=== PATIENT | male | born 1940 | race Caucasian/White ===

== ENCOUNTER → 2016-08-21 | Outpatient (CLI) | payer MEDICARE, OTHER ==
[~2016-08-21] VITALS: Ht 172.7 cm; Wt 86.2 kg
[~2016-08-21] MED LIST: ATEN-60 PO; AZIL1TAB PO; DIGO0.124 PO; NAPR-759 PO; NITR0.4S31 SL; WARF3TAB7 PO; pravastatin PO
[2016-08-21 12:36] LABS: Basophils # (auto) 0.1 uL; Basophils % (auto) 0.7 % (0.0-2.0); CONDITION Y; Eosinophils # (auto) 0.1 uL; Eosinophils % (auto) 0.9 % (0.0-7.0); Hematocrit 52.8 % (41.0-53.0); Lymphocytes # (auto) 2.1 uL; Lymphocytes % (auto) 29.8 % (10.0-50.0); Mean Corpuscular Hemoglobin 31.9 pg (28.0-32.0); Mean Corpuscular Hgb Conc. 34.2 g/dL (32.0-36.0); Mean Corpuscular Volume 93.4 fL (80.0-100.0); Mean Platelet Volume 9.8 fL (7.4-10.4); Monocytes # (auto) 0.6 uL; Monocytes % (auto) 8.9 % (0.0-12.0); Neutrophils # (auto) 4.1 uL; Neutrophils % (auto) 59.7 % (37.0-80.0); Platelet Count (auto) 195 10^3/uL (140-450); Red Cell Distribution Width 13.3 % (11.6-16.0); White Blood Cell 6.9 10^3/uL (4.4-10.8)
[2016-08-21 12:57] LABS: Potassium 4.1 mmol/L (3.5-5.1)
== END | disposition home or self-care (01) ==
LOC: Rad HDHVI 08:23
PROVIDERS: ATTEND Internal Medicine Cardiovascular Disease
DX: E78.00 Pure hypercholesterolemia, unspecified (principal); I10 Essential (primary) hypertension; D64.9 Anemia, unspecified
CPT/HCPCS: 36415; 78452; 80048; 80061; 85025; 93017; 96374

== ENCOUNTER → 2016-09-26 | Outpatient (CLI) | payer MEDICARE, OTHER | END | disposition home or self-care (01) | LOC: Rad HDHVI 12:54 | PROVIDERS: ATTEND Internal Medicine Cardiovascular Disease | DX: I10 Essential (primary) hypertension (principal); I48.0 Paroxysmal atrial fibrillation | CPT/HCPCS: 93880 ==

== ENCOUNTER → 2016-12-26 | Outpatient (CLI) | payer MEDICARE, OTHER ==
[~2016-12-26] MED LIST changes: +IOHEXOL 350 MG/ML 100ML IJ ONE
[2016-12-26 10:15] VITALS: BP 189/119
[2016-12-26 11:05] VITALS: BP 147/87
== END | disposition home or self-care (01) ==
LOC: Rad HDHVI 09:33
PROVIDERS: ATTEND Internal Medicine Cardiovascular Disease
DX: I65.23 Occlusion and stenosis of bilateral carotid arteries (principal); I65.02 Occlusion and stenosis of left vertebral artery; I63.9 Cerebral infarction, unspecified; I10 Essential (primary) hypertension; H33.20 Serous retinal detachment, unspecified eye; I48.91 Unspecified atrial fibrillation
CPT/HCPCS: 70498; 82565; 96374; G0463; Q9967; 70496

== ENCOUNTER → 2017-01-22 | Outpatient (CLI) | payer MEDICARE, OTHER ==
[~2017-01-22] MED LIST changes: -IOHEXOL 350 MG/ML 100ML IJ ONE
[2017-01-22 10:15] VITALS: BP_SYST 140; BP_SYST 144; BP_DIAS 91; BP_DIAS 94
[2017-01-22 11:30] VITALS: BP 144/94
== END | disposition home or self-care (01) ==
LOC: CHF HDHVI 09:42
PROVIDERS: ATTEND Internal Medicine Cardiovascular Disease
DX: I25.738 Atherosclerosis of nonautologous biological coronary artery bypass graft(s) with other forms of angina pectoris (principal); I11.0 Hypertensive heart disease with heart failure; I50.23 Acute on chronic systolic (congestive) heart failure; I48.91 Unspecified atrial fibrillation; I63.9 Cerebral infarction, unspecified
CPT/HCPCS: 93005; G0166; G0463

== ENCOUNTER → 2017-01-23 | Outpatient (CLI) | payer MEDICARE, OTHER ==
[2017-01-23 09:55] VITALS: BP_SYST 143; BP_SYST 145; BP_DIAS 90; BP_DIAS 91
== END | disposition home or self-care (01) ==
LOC: CHF HDHVI 09:49
PROVIDERS: ATTEND Internal Medicine Cardiovascular Disease
DX: J44.9 Chronic obstructive pulmonary disease, unspecified (principal); I50.23 Acute on chronic systolic (congestive) heart failure; I25.738 Atherosclerosis of nonautologous biological coronary artery bypass graft(s) with other forms of angina pectoris; I63.9 Cerebral infarction, unspecified
CPT/HCPCS: G0166

== ENCOUNTER → 2017-01-24 | Outpatient (CLI) | payer MEDICARE, OTHER ==
[2017-01-24 09:58] VITALS: BP_SYST 136; BP_SYST 143; BP_DIAS 91
== END | disposition home or self-care (01) ==
LOC: CHF HDHVI 09:53
PROVIDERS: ATTEND Internal Medicine Cardiovascular Disease
DX: I25.738 Atherosclerosis of nonautologous biological coronary artery bypass graft(s) with other forms of angina pectoris (principal); I50.23 Acute on chronic systolic (congestive) heart failure; J44.9 Chronic obstructive pulmonary disease, unspecified; I63.9 Cerebral infarction, unspecified
CPT/HCPCS: G0166

== ENCOUNTER → 2017-01-29 | Outpatient (CLI) | payer MEDICARE, OTHER ==
[2017-01-29 10:02] VITALS: BP_SYST 142; BP_SYST 143; BP_DIAS 87; BP_DIAS 89
== END | disposition home or self-care (01) ==
LOC: CHF HDHVI 09:48
PROVIDERS: ATTEND Internal Medicine Cardiovascular Disease
DX: I25.738 Atherosclerosis of nonautologous biological coronary artery bypass graft(s) with other forms of angina pectoris (principal); I50.23 Acute on chronic systolic (congestive) heart failure; J44.9 Chronic obstructive pulmonary disease, unspecified; I63.8 Other cerebral infarction
CPT/HCPCS: G0166

== ENCOUNTER → 2017-01-30 | Outpatient (CLI) | payer MEDICARE, OTHER ==
[2017-01-30 09:17] VITALS: BP_SYST 143; BP_SYST 144; BP_DIAS 82; BP_DIAS 99
== END | disposition home or self-care (01) ==
LOC: CHF HDHVI 08:56
PROVIDERS: ATTEND Internal Medicine Cardiovascular Disease
DX: I25.738 Atherosclerosis of nonautologous biological coronary artery bypass graft(s) with other forms of angina pectoris (principal); I50.23 Acute on chronic systolic (congestive) heart failure; J44.9 Chronic obstructive pulmonary disease, unspecified; I63.9 Cerebral infarction, unspecified
CPT/HCPCS: G0166

== ENCOUNTER → 2017-02-05 | Outpatient (CLI) | payer MEDICARE, OTHER ==
[2017-02-05 10:28] VITALS: BP_SYST 135; BP_SYST 137; BP_DIAS 87; BP_DIAS 92
== END | disposition home or self-care (01) ==
LOC: CHF HDHVI 09:48
PROVIDERS: ATTEND Internal Medicine Cardiovascular Disease
DX: I25.738 Atherosclerosis of nonautologous biological coronary artery bypass graft(s) with other forms of angina pectoris (principal); I50.23 Acute on chronic systolic (congestive) heart failure; J44.9 Chronic obstructive pulmonary disease, unspecified; I63.9 Cerebral infarction, unspecified
CPT/HCPCS: G0166

== ENCOUNTER → 2017-02-06 | Outpatient (CLI) | payer MEDICARE, OTHER ==
[2017-02-06 10:21] VITALS: BP_SYST 135; BP_SYST 143; BP_DIAS 85; BP_DIAS 87
== END | disposition home or self-care (01) ==
LOC: CHF HDHVI 09:56
PROVIDERS: ATTEND Internal Medicine Cardiovascular Disease
DX: I25.738 Atherosclerosis of nonautologous biological coronary artery bypass graft(s) with other forms of angina pectoris (principal); I50.23 Acute on chronic systolic (congestive) heart failure; J44.9 Chronic obstructive pulmonary disease, unspecified; I63.9 Cerebral infarction, unspecified
CPT/HCPCS: G0166

== ENCOUNTER → 2017-02-07 | Outpatient (CLI) | payer MEDICARE, OTHER ==
[2017-02-07 08:58] VITALS: BP_SYST 126; BP_SYST 145; BP_DIAS 78; BP_DIAS 86
== END | disposition home or self-care (01) ==
LOC: CHF HDHVI 08:52
PROVIDERS: ATTEND Internal Medicine Cardiovascular Disease
DX: I25.738 Atherosclerosis of nonautologous biological coronary artery bypass graft(s) with other forms of angina pectoris (principal); I50.23 Acute on chronic systolic (congestive) heart failure; J44.9 Chronic obstructive pulmonary disease, unspecified; I63.9 Cerebral infarction, unspecified
CPT/HCPCS: G0166

== ENCOUNTER → 2017-02-08 | Outpatient (CLI) | payer MEDICARE, OTHER ==
[2017-02-08 10:20] VITALS: BP_SYST 129; BP_SYST 138; BP_DIAS 81; BP_DIAS 86
== END | disposition home or self-care (01) ==
LOC: CHF HDHVI 10:01
PROVIDERS: ATTEND Internal Medicine Cardiovascular Disease
DX: I25.738 Atherosclerosis of nonautologous biological coronary artery bypass graft(s) with other forms of angina pectoris (principal); I50.23 Acute on chronic systolic (congestive) heart failure; J44.9 Chronic obstructive pulmonary disease, unspecified; I63.9 Cerebral infarction, unspecified
CPT/HCPCS: G0166

== ENCOUNTER → 2017-02-09 | Outpatient (CLI) | payer MEDICARE, OTHER ==
[2017-02-09 09:00] VITALS: BP_SYST 130; BP_SYST 139; BP_DIAS 85; BP_DIAS 92
== END | disposition home or self-care (01) ==
LOC: CHF HDHVI 08:53
PROVIDERS: ATTEND Internal Medicine Cardiovascular Disease
DX: I25.738 Atherosclerosis of nonautologous biological coronary artery bypass graft(s) with other forms of angina pectoris (principal); I50.23 Acute on chronic systolic (congestive) heart failure; J44.9 Chronic obstructive pulmonary disease, unspecified; I63.9 Cerebral infarction, unspecified
CPT/HCPCS: G0166

== ENCOUNTER → 2017-02-13 | Outpatient (CLI) | payer MEDICARE, OTHER ==
[2017-02-13 10:17] VITALS: BP_SYST 135; BP_SYST 143; BP_DIAS 80; BP_DIAS 95
== END | disposition home or self-care (01) ==
LOC: CHF HDHVI 09:55
PROVIDERS: ATTEND Internal Medicine Cardiovascular Disease
DX: I25.738 Atherosclerosis of nonautologous biological coronary artery bypass graft(s) with other forms of angina pectoris (principal); I50.23 Acute on chronic systolic (congestive) heart failure; J44.9 Chronic obstructive pulmonary disease, unspecified; I63.9 Cerebral infarction, unspecified
CPT/HCPCS: G0166

== ENCOUNTER → 2017-02-14 | Outpatient (CLI) | payer MEDICARE, OTHER ==
[2017-02-14 08:59] VITALS: BP_SYST 143; BP_SYST 145; BP_DIAS 89; BP_DIAS 90
== END | disposition home or self-care (01) ==
LOC: CHF HDHVI 08:53
PROVIDERS: ATTEND Internal Medicine Cardiovascular Disease
DX: I25.738 Atherosclerosis of nonautologous biological coronary artery bypass graft(s) with other forms of angina pectoris (principal); I50.23 Acute on chronic systolic (congestive) heart failure; J44.9 Chronic obstructive pulmonary disease, unspecified; I63.9 Cerebral infarction, unspecified
CPT/HCPCS: G0166

== ENCOUNTER → 2017-02-16 | Outpatient (CLI) | payer MEDICARE, OTHER ==
[2017-02-16 09:02] VITALS: BP_SYST 129; BP_SYST 148; BP_DIAS 87; BP_DIAS 97
== END | disposition home or self-care (01) ==
LOC: CHF HDHVI 08:55
PROVIDERS: ATTEND Internal Medicine Cardiovascular Disease
DX: I25.738 Atherosclerosis of nonautologous biological coronary artery bypass graft(s) with other forms of angina pectoris (principal); I50.23 Acute on chronic systolic (congestive) heart failure; J44.9 Chronic obstructive pulmonary disease, unspecified; I63.9 Cerebral infarction, unspecified
CPT/HCPCS: G0166

== ENCOUNTER → 2017-02-19 | Outpatient (CLI) | payer MEDICARE, OTHER ==
[2017-02-19 09:58] VITALS: BP_SYST 127; BP_SYST 142; BP_DIAS 91; BP_DIAS 92
== END | disposition home or self-care (01) ==
LOC: CHF HDHVI 09:43
PROVIDERS: ATTEND Internal Medicine Cardiovascular Disease
DX: I25.738 Atherosclerosis of nonautologous biological coronary artery bypass graft(s) with other forms of angina pectoris (principal); I50.23 Acute on chronic systolic (congestive) heart failure; J44.9 Chronic obstructive pulmonary disease, unspecified; I63.9 Cerebral infarction, unspecified
CPT/HCPCS: G0166

== ENCOUNTER → 2017-02-20 | Outpatient (CLI) | payer MEDICARE, OTHER ==
[2017-02-20 10:24] VITALS: BP_SYST 136; BP_SYST 142; BP_DIAS 92; BP_DIAS 98
== END | disposition home or self-care (01) ==
LOC: CHF HDHVI 10:07
PROVIDERS: ATTEND Internal Medicine Cardiovascular Disease
DX: I25.738 Atherosclerosis of nonautologous biological coronary artery bypass graft(s) with other forms of angina pectoris (principal); I50.23 Acute on chronic systolic (congestive) heart failure; J44.9 Chronic obstructive pulmonary disease, unspecified; I63.9 Cerebral infarction, unspecified
CPT/HCPCS: G0166

== ENCOUNTER → 2017-02-21 | Outpatient (CLI) | payer MEDICARE, OTHER ==
[2017-02-21 09:04] VITALS: BP_SYST 140; BP_SYST 146; BP_DIAS 93; BP_DIAS 94
== END | disposition home or self-care (01) ==
LOC: CHF HDHVI 09:26
PROVIDERS: ATTEND Internal Medicine Cardiovascular Disease
DX: I25.738 Atherosclerosis of nonautologous biological coronary artery bypass graft(s) with other forms of angina pectoris (principal); I50.23 Acute on chronic systolic (congestive) heart failure; J44.9 Chronic obstructive pulmonary disease, unspecified; I63.9 Cerebral infarction, unspecified
CPT/HCPCS: G0166

== ENCOUNTER → 2017-02-22 | Outpatient (CLI) | payer MEDICARE, OTHER ==
[2017-02-22 08:59] VITALS: BP_SYST 141; BP_SYST 144; BP_DIAS 94; BP_DIAS 95
== END | disposition home or self-care (01) ==
LOC: CHF HDHVI 08:45
PROVIDERS: ATTEND Internal Medicine Cardiovascular Disease
DX: I25.738 Atherosclerosis of nonautologous biological coronary artery bypass graft(s) with other forms of angina pectoris (principal); I50.23 Acute on chronic systolic (congestive) heart failure; J44.9 Chronic obstructive pulmonary disease, unspecified; I63.9 Cerebral infarction, unspecified
CPT/HCPCS: G0166

== ENCOUNTER → 2017-02-23 | Outpatient (CLI) | payer MEDICARE, OTHER ==
[2017-02-23 08:05] VITALS: BP_SYST 139; BP_SYST 142; BP_DIAS 82; BP_DIAS 88
== END | disposition home or self-care (01) ==
LOC: CHF HDHVI 08:01
PROVIDERS: ATTEND Internal Medicine Cardiovascular Disease
DX: I25.738 Atherosclerosis of nonautologous biological coronary artery bypass graft(s) with other forms of angina pectoris (principal); I50.23 Acute on chronic systolic (congestive) heart failure; J44.9 Chronic obstructive pulmonary disease, unspecified; I63.9 Cerebral infarction, unspecified
CPT/HCPCS: G0166

== ENCOUNTER → 2017-03-01 | Outpatient (CLI) | payer MEDICARE, OTHER ==
[2017-03-01 10:22] VITALS: BP_SYST 126; BP_SYST 137; BP_DIAS 82; BP_DIAS 91
== END | disposition home or self-care (01) ==
LOC: CHF HDHVI 10:04
PROVIDERS: ATTEND Internal Medicine Cardiovascular Disease
DX: I25.738 Atherosclerosis of nonautologous biological coronary artery bypass graft(s) with other forms of angina pectoris (principal); I50.23 Acute on chronic systolic (congestive) heart failure; J44.9 Chronic obstructive pulmonary disease, unspecified; I63.9 Cerebral infarction, unspecified
CPT/HCPCS: G0166

== ENCOUNTER → 2017-03-02 | Outpatient (CLI) | payer MEDICARE, OTHER ==
[2017-03-02 08:51] VITALS: BP_SYST 137; BP_SYST 143; BP_DIAS 92; BP_DIAS 93
== END | disposition home or self-care (01) ==
LOC: CHF HDHVI 08:46
PROVIDERS: ATTEND Internal Medicine Cardiovascular Disease
DX: I25.738 Atherosclerosis of nonautologous biological coronary artery bypass graft(s) with other forms of angina pectoris (principal); I50.23 Acute on chronic systolic (congestive) heart failure; J44.9 Chronic obstructive pulmonary disease, unspecified; I63.9 Cerebral infarction, unspecified
CPT/HCPCS: G0166

== ENCOUNTER → 2017-03-06 | Outpatient (CLI) | payer MEDICARE, OTHER ==
[2017-03-06 10:16] VITALS: BP_SYST 141; BP_SYST 147; BP_DIAS 89; BP_DIAS 90
== END | disposition home or self-care (01) ==
LOC: CHF HDHVI 09:53
PROVIDERS: ATTEND Internal Medicine Cardiovascular Disease
DX: I25.738 Atherosclerosis of nonautologous biological coronary artery bypass graft(s) with other forms of angina pectoris (principal); I50.23 Acute on chronic systolic (congestive) heart failure; J44.9 Chronic obstructive pulmonary disease, unspecified; I63.9 Cerebral infarction, unspecified
CPT/HCPCS: G0166

== ENCOUNTER → 2017-03-07 | Outpatient (CLI) | payer MEDICARE, OTHER ==
[2017-03-07 08:53] VITALS: BP_SYST 125; BP_SYST 136; BP_DIAS 82; BP_DIAS 90
== END | disposition home or self-care (01) ==
LOC: CHF HDHVI 08:46
PROVIDERS: ATTEND Internal Medicine Cardiovascular Disease
DX: I25.738 Atherosclerosis of nonautologous biological coronary artery bypass graft(s) with other forms of angina pectoris (principal); I50.23 Acute on chronic systolic (congestive) heart failure; J44.9 Chronic obstructive pulmonary disease, unspecified; I63.9 Cerebral infarction, unspecified
CPT/HCPCS: G0166

== ENCOUNTER → 2017-03-08 | Outpatient (CLI) | payer MEDICARE, OTHER ==
[2017-03-08 10:16] VITALS: BP_SYST 141; BP_SYST 142; BP_DIAS 94; BP_DIAS 96
== END | disposition home or self-care (01) ==
LOC: CHF HDHVI 10:09
PROVIDERS: ATTEND Internal Medicine Cardiovascular Disease
DX: I25.738 Atherosclerosis of nonautologous biological coronary artery bypass graft(s) with other forms of angina pectoris (principal); I50.23 Acute on chronic systolic (congestive) heart failure; J44.9 Chronic obstructive pulmonary disease, unspecified; I63.9 Cerebral infarction, unspecified
CPT/HCPCS: G0166

== ENCOUNTER → 2017-03-09 | Outpatient (CLI) | payer MEDICARE, OTHER ==
[2017-03-09 08:50] VITALS: BP_SYST 140; BP_DIAS 80; BP_DIAS 83
== END | disposition home or self-care (01) ==
LOC: CHF HDHVI 08:37
PROVIDERS: ATTEND Internal Medicine Cardiovascular Disease
DX: I25.738 Atherosclerosis of nonautologous biological coronary artery bypass graft(s) with other forms of angina pectoris (principal); I50.23 Acute on chronic systolic (congestive) heart failure; J44.9 Chronic obstructive pulmonary disease, unspecified; I63.9 Cerebral infarction, unspecified
CPT/HCPCS: G0166

== ENCOUNTER → 2017-03-12 | Outpatient (CLI) | payer MEDICARE, OTHER ==
[2017-03-12 08:55] VITALS: BP_SYST 140; BP_SYST 141; BP_DIAS 84; BP_DIAS 86
== END | disposition home or self-care (01) ==
LOC: CHF HDHVI 08:51
PROVIDERS: ATTEND Internal Medicine Cardiovascular Disease
DX: I25.738 Atherosclerosis of nonautologous biological coronary artery bypass graft(s) with other forms of angina pectoris (principal); I63.9 Cerebral infarction, unspecified; J44.9 Chronic obstructive pulmonary disease, unspecified
CPT/HCPCS: G0166

== ENCOUNTER → 2017-03-14 | Outpatient (CLI) | payer MEDICARE, OTHER ==
[2017-03-14 09:00] VITALS: BP_SYST 140; BP_SYST 142; BP_DIAS 83; BP_DIAS 93
== END | disposition home or self-care (01) ==
LOC: CHF HDHVI 08:49
PROVIDERS: ATTEND Internal Medicine Cardiovascular Disease
DX: I25.738 Atherosclerosis of nonautologous biological coronary artery bypass graft(s) with other forms of angina pectoris (principal); I50.23 Acute on chronic systolic (congestive) heart failure; J44.9 Chronic obstructive pulmonary disease, unspecified; I63.9 Cerebral infarction, unspecified
CPT/HCPCS: G0166

== ENCOUNTER → 2017-03-15 | Outpatient (CLI) | payer MEDICARE, OTHER ==
[2017-03-15 12:13] VITALS: BP_SYST 125; BP_SYST 130; BP_DIAS 92; BP_DIAS 96
== END | disposition home or self-care (01) ==
LOC: CHF HDHVI 12:05
PROVIDERS: ATTEND Internal Medicine Cardiovascular Disease
DX: I25.738 Atherosclerosis of nonautologous biological coronary artery bypass graft(s) with other forms of angina pectoris (principal); I50.23 Acute on chronic systolic (congestive) heart failure; J44.9 Chronic obstructive pulmonary disease, unspecified; I63.9 Cerebral infarction, unspecified
CPT/HCPCS: G0166

== ENCOUNTER → 2017-03-16 | Outpatient (CLI) | payer MEDICARE, OTHER ==
[2017-03-16 09:05] VITALS: BP_SYST 130; BP_SYST 131; BP_DIAS 86; BP_DIAS 88
== END | disposition home or self-care (01) ==
LOC: CHF HDHVI 08:52
PROVIDERS: ATTEND Internal Medicine Cardiovascular Disease
DX: I25.738 Atherosclerosis of nonautologous biological coronary artery bypass graft(s) with other forms of angina pectoris (principal); I50.23 Acute on chronic systolic (congestive) heart failure; J44.9 Chronic obstructive pulmonary disease, unspecified; I63.9 Cerebral infarction, unspecified
CPT/HCPCS: G0166

== ENCOUNTER → 2017-03-26 | Outpatient (CLI) | payer MEDICARE, OTHER ==
[2017-03-26 08:59] VITALS: BP_SYST 135; BP_SYST 138; BP_DIAS 83; BP_DIAS 92
== END | disposition home or self-care (01) ==
LOC: CHF HDHVI 08:52
PROVIDERS: ATTEND Internal Medicine Cardiovascular Disease
DX: I25.738 Atherosclerosis of nonautologous biological coronary artery bypass graft(s) with other forms of angina pectoris (principal); I50.23 Acute on chronic systolic (congestive) heart failure; J44.9 Chronic obstructive pulmonary disease, unspecified; I63.9 Cerebral infarction, unspecified
CPT/HCPCS: G0166

== ENCOUNTER → 2017-03-27 | Outpatient (CLI) | payer MEDICARE, OTHER ==
[2017-03-27 08:59] VITALS: BP_SYST 133; BP_SYST 139; BP_DIAS 84; BP_DIAS 95
== END | disposition home or self-care (01) ==
LOC: CHF HDHVI 08:45
PROVIDERS: ATTEND Internal Medicine Cardiovascular Disease
DX: I25.738 Atherosclerosis of nonautologous biological coronary artery bypass graft(s) with other forms of angina pectoris (principal); I50.23 Acute on chronic systolic (congestive) heart failure; J44.9 Chronic obstructive pulmonary disease, unspecified; I63.9 Cerebral infarction, unspecified
CPT/HCPCS: G0166

== ENCOUNTER → 2017-03-28 | Outpatient (CLI) | payer MEDICARE, OTHER ==
[2017-03-28 09:04] VITALS: BP_SYST 136; BP_SYST 140; BP_DIAS 89
== END | disposition home or self-care (01) ==
LOC: CHF HDHVI 08:59
PROVIDERS: ATTEND Internal Medicine Cardiovascular Disease
DX: I25.738 Atherosclerosis of nonautologous biological coronary artery bypass graft(s) with other forms of angina pectoris (principal); I50.23 Acute on chronic systolic (congestive) heart failure; J44.9 Chronic obstructive pulmonary disease, unspecified; I63.9 Cerebral infarction, unspecified
CPT/HCPCS: G0166

== ENCOUNTER → 2017-03-29 | Outpatient (CLI) | payer MEDICARE, OTHER ==
[2017-03-29 08:55] VITALS: BP_SYST 140; BP_DIAS 89; BP_DIAS 91
== END | disposition home or self-care (01) ==
LOC: CHF HDHVI 08:46
PROVIDERS: ATTEND Internal Medicine Cardiovascular Disease
DX: I25.738 Atherosclerosis of nonautologous biological coronary artery bypass graft(s) with other forms of angina pectoris (principal); I50.23 Acute on chronic systolic (congestive) heart failure; J44.9 Chronic obstructive pulmonary disease, unspecified; I63.9 Cerebral infarction, unspecified
CPT/HCPCS: G0166

== ENCOUNTER → 2017-03-30 | Outpatient (CLI) | payer MEDICARE, OTHER ==
[2017-03-30 09:04] VITALS: BP_SYST 139; BP_SYST 144; BP_DIAS 84; BP_DIAS 85
== END | disposition home or self-care (01) ==
LOC: CHF HDHVI 08:54
PROVIDERS: ATTEND Internal Medicine Cardiovascular Disease
DX: I25.738 Atherosclerosis of nonautologous biological coronary artery bypass graft(s) with other forms of angina pectoris (principal); I50.23 Acute on chronic systolic (congestive) heart failure; J44.9 Chronic obstructive pulmonary disease, unspecified; I63.9 Cerebral infarction, unspecified
CPT/HCPCS: G0166

== ENCOUNTER → 2017-04-02 | Outpatient (CLI) | payer MEDICARE, OTHER ==
[2017-04-02 09:03] VITALS: BP_SYST 140; BP_DIAS 86; BP_DIAS 92
== END | disposition home or self-care (01) ==
LOC: CHF HDHVI 08:49
PROVIDERS: ATTEND Internal Medicine Cardiovascular Disease
DX: I25.738 Atherosclerosis of nonautologous biological coronary artery bypass graft(s) with other forms of angina pectoris (principal); I50.23 Acute on chronic systolic (congestive) heart failure; J44.9 Chronic obstructive pulmonary disease, unspecified; I63.9 Cerebral infarction, unspecified
CPT/HCPCS: G0166

== ENCOUNTER → 2017-04-03 | Outpatient (CLI) | payer MEDICARE, OTHER ==
[2017-04-03 09:00] VITALS: BP_SYST 130; BP_SYST 140; BP_DIAS 83; BP_DIAS 84
== END | disposition home or self-care (01) ==
LOC: CHF HDHVI 08:52
PROVIDERS: ATTEND Internal Medicine Cardiovascular Disease
DX: I25.738 Atherosclerosis of nonautologous biological coronary artery bypass graft(s) with other forms of angina pectoris (principal); I50.23 Acute on chronic systolic (congestive) heart failure; J44.9 Chronic obstructive pulmonary disease, unspecified; I63.9 Cerebral infarction, unspecified
CPT/HCPCS: G0166

== ENCOUNTER → 2017-06-01 | Outpatient (CLI) | payer MEDICARE, OTHER ==
[2017-06-01 12:29] LABS: Urine Blood Negative /uL (Negative)
[2017-06-01 12:30] LABS: Basophils # (auto) 0 uL; Basophils % (auto) 0.5 % (0.0-2.0); Eosinophils # (auto) 0.1 uL; Eosinophils % (auto) 0.9 % (0.0-7.0); Hematocrit 51.9 % (41.0-53.0); Hemoglobin 17.8 g/dL (13.5-17.5); Lymphocytes # (auto) 2.3 uL; Lymphocytes % (auto) 33.3 % (10.0-50.0); Mean Corpuscular Hemoglobin 31.9 pg (28.0-32.0); Mean Corpuscular Hgb Conc. 34.4 g/dL (32.0-36.0); Mean Corpuscular Volume 92.9 fL (80.0-100.0); Monocytes # (auto) 0.7 uL; Monocytes % (auto) 10.7 % (0.0-12.0); Neutrophils # (auto) 3.8 uL; Neutrophils % (auto) 54.6 % (37.0-80.0); Nucleated Red Blood Cells % 1.3 %; Platelet Count (auto) 177 10^3/uL (140-450); Red Blood Cells 5.59 10^6/uL (4.5-5.90)
[2017-06-01 12:35] LABS: BUN/Creatinine Ratio 15.9; Bilirubin, Total 0.9 mg/dL (0.2-1.0); Potassium 4.4 mmol/L (3.5-5.1); Total Protein 8.1 g/dL (6.4-8.2)
[2017-06-01 12:45] LABS: Free T4 (Free Thyroxine) 1.1 ng/dL (0.89-1.76)
[2017-06-01 12:46] LABS: Prostate Specific Antigen 0.64 ng/mL (0.0-4.0)
== END | disposition home or self-care (01) ==
LOC: LAB 07:55
PROVIDERS: ATTEND Internal Medicine Cardiovascular Disease
DX: I34.0 Nonrheumatic mitral (valve) insufficiency (principal); I20.0 Unstable angina; E78.5 Hyperlipidemia, unspecified; D64.9 Anemia, unspecified; I10 Essential (primary) hypertension; E03.9 Hypothyroidism, unspecified; E55.9 Vitamin D deficiency, unspecified; R53.81 Other malaise; E11.9 Type 2 diabetes mellitus without complications; R97.20 Elevated prostate specific antigen [PSA]; D51.9 Vitamin B12 deficiency anemia, unspecified; N39.0 Urinary tract infection, site not specified
CPT/HCPCS: 36415; 80053; 80061; 81003; 82306; 82607; 83036; 84153; 84403; 84439; 84443; 85025; 93306

== ENCOUNTER → 2017-10-22 | Outpatient (CLI) | payer MEDICARE, OTHER ==
[~2017-10-22] VITALS: Ht 172.7 cm; Wt 88.0 kg
== END | disposition home or self-care (01) ==
LOC: Rad HDHVI 13:53
PROVIDERS: ATTEND Internal Medicine Cardiovascular Disease
DX: I10 Essential (primary) hypertension (principal); E78.5 Hyperlipidemia, unspecified; I48.2 Chronic atrial fibrillation; N40.1 Benign prostatic hyperplasia with lower urinary tract symptoms; Z68.29 Body mass index [BMI] 29.0-29.9, adult; Z79.899 Other long term (current) drug therapy
CPT/HCPCS: 78452; 93017; 96374; A9500

== ENCOUNTER → 2017-11-20 | Outpatient (CLI) | payer MEDICARE, OTHER ==
[~2017-11-20] MED LIST changes: +ASPirin 325 MG TAB ONE; +CHOL100079 PO; +LORA-622 PO; +LUTE20CA PO; +METO100T87 PO; +MULTCAP45 PO; +RIVA20TA PO; +TICAGRELOR 90 MG TAB ONE; +TURM500C3 PO; +UBIQ100C3 PO; +[UNRECOGNIZED DRUG - CODE] PO
[2017-11-20 09:30] VITALS: BP 150/90
[2017-11-20 10:00] VITALS: BP 147/95
[2017-11-20 12:37] LABS: Basophils # (auto) 0 uL; Basophils % (auto) 0.5 % (0.0-2.0); Eosinophils # (auto) 0.1 uL; Eosinophils % (auto) 1.4 % (0.0-7.0); Hematocrit 50.6 % (41.0-53.0); Hemoglobin 17.5 g/dL (13.5-17.5); Lymphocytes # (auto) 2.1 uL; Lymphocytes % (auto) 30.3 % (10.0-50.0); Mean Corpuscular Hemoglobin 32.5 pg (28.0-32.0); Mean Corpuscular Hgb Conc. 34.6 g/dL (32.0-36.0); Mean Corpuscular Volume 93.7 fL (80.0-100.0); Monocytes # (auto) 0.5 uL; Monocytes % (auto) 7.2 % (0.0-12.0); Neutrophils # (auto) 4.2 uL; Neutrophils % (auto) 60.6 % (37.0-80.0); Nucleated Red Blood Cells % 0.1 %; Platelet Count (auto) 165 10^3/uL (140-450); Red Cell Distribution Width 13.3 % (11.8-14.3); White Blood Cell 6.9 10^3/uL (4.4-10.8)
[2017-11-20 12:51] LABS: INR 1.28 (0.9-1.15); Partial Thromboplastin Time 35.6 sec (23.78-33.04); Prothrombin Time 13.5 sec (9.27-12.13)
[2017-11-20 12:57] LABS: BUN/Creatinine Ratio 12.5; Potassium 4.3 mmol/L (3.5-5.1)
== END | disposition home or self-care (01) ==
LOC: Rad HDHVI 08:53
PROVIDERS: ATTEND Internal Medicine Cardiovascular Disease
DX: Z01.810 Encounter for preprocedural cardiovascular examination (principal); I70.0 Atherosclerosis of aorta; I10 Essential (primary) hypertension; D64.9 Anemia, unspecified; R79.1 Abnormal coagulation profile; R94.31 Abnormal electrocardiogram [ECG] [EKG]
CPT/HCPCS: 36415; 71046; 80048; 85025; 85610; 85730; 93005; G0463

== ENCOUNTER → 2017-11-26 | Outpatient (CLI) | payer MEDICARE, OTHER ==
[~2017-11-26] MED LIST changes: -ASPirin 325 MG TAB ONE; -ATEN-60 PO; -AZIL1TAB PO; -NAPR-759 PO; -NITR0.4S31 SL; -TICAGRELOR 90 MG TAB ONE; -WARF3TAB7 PO
[2017-11-26 13:10] LABS: Basophils # (auto) 0.1 uL; Basophils % (auto) 0.4 % (0.0-2.0); Eosinophils # (auto) 0.2 uL; Eosinophils % (auto) 1.8 % (0.0-7.0); Hematocrit 45.9 % (41.0-53.0); Hemoglobin 15.7 g/dL (13.5-17.5); Lymphocytes # (auto) 2.5 uL; Lymphocytes % (auto) 18.4 % (10.0-50.0); Mean Corpuscular Hgb Conc. 34.2 g/dL (32.0-36.0); Mean Corpuscular Volume 93.7 fL (80.0-100.0); Monocytes # (auto) 1.6 uL; Monocytes % (auto) 12.1 % (0.0-12.0); Neutrophils % (auto) 67.3 % (37.0-80.0); Nucleated Red Blood Cells % 0.2 %; Platelet Count (auto) 183 10^3/uL (140-450); Red Blood Cells 4.89 10^6/uL (4.5-5.90); Red Cell Distribution Width 13.6 % (11.8-14.3); White Blood Cell 13.4 10^3/uL (4.4-10.8)
[2017-11-26 13:38] LABS: Calcium 8.8 mg/dL (8.5-10.1); Potassium 4.2 mmol/L (3.5-5.1)
== END | disposition home or self-care (01) ==
LOC: LAB 10:04
PROVIDERS: ATTEND Internal Medicine Cardiovascular Disease
DX: I10 Essential (primary) hypertension (principal); D64.9 Anemia, unspecified; F41.9 Anxiety disorder, unspecified
CPT/HCPCS: 36415; 80048; 85025

== ENCOUNTER → 2017-11-29 | Outpatient (CLI) | payer MEDICARE, OTHER | END | disposition home or self-care (01) | LOC: Rad HDHVI 14:58 | PROVIDERS: ATTEND Internal Medicine Cardiovascular Disease | DX: I34.0 Nonrheumatic mitral (valve) insufficiency (principal); I25.2 Old myocardial infarction; I10 Essential (primary) hypertension | CPT/HCPCS: 93306 ==

== ENCOUNTER → 2017-12-26 | Outpatient (CLI) | payer MEDICARE, OTHER ==
[~2017-12-26] MED LIST changes: +FUROSEMIDE 40 MG/4 ML VIAL IV ONE; +FUROSEMIDE 40 MG/4 ML VIAL ONE; +POTASSIUM CHL 10 Meq TABLET PO ONE
[2017-12-26 11:00] VITALS: BP 130/80
[2017-12-26 11:25] VITALS: BP 141/91
[2017-12-26 16:29] LABS: Basophils # (auto) 0 uL; Basophils % (auto) 0.7 % (0.0-2.0); Eosinophils # (auto) 0.1 uL; Eosinophils % (auto) 1.1 % (0.0-7.0); Hematocrit 49.4 % (41.0-53.0); Hemoglobin 16.7 g/dL (13.5-17.5); Lymphocytes # (auto) 1.7 uL; Lymphocytes % (auto) 30.9 % (10.0-50.0); Mean Corpuscular Hemoglobin 32.2 pg (28.0-32.0); Mean Corpuscular Hgb Conc. 33.8 g/dL (32.0-36.0); Mean Corpuscular Volume 95.3 fL (80.0-100.0); Monocytes # (auto) 0.7 uL; Monocytes % (auto) 12.3 % (0.0-12.0); Nucleated Red Blood Cells % 0.5 %; Platelet Count (auto) 176 10^3/uL (140-450); Red Blood Cells 5.18 10^6/uL (4.5-5.90); Red Cell Distribution Width 14.3 % (11.8-14.3); White Blood Cell 5.4 10^3/uL (4.4-10.8)
[2017-12-26 16:39] LABS: Calcium 9.2 mg/dL (8.5-10.1); Potassium 4.7 mmol/L (3.5-5.1)
[2017-12-26 16:42] LABS: BUN/Creatinine Ratio 13.5
== END | disposition home or self-care (01) ==
LOC: Rad HDHVI 10:51
PROVIDERS: ATTEND Internal Medicine Cardiovascular Disease
DX: I11.0 Hypertensive heart disease with heart failure (principal); I50.43 Acute on chronic combined systolic (congestive) and diastolic (congestive) heart failure; R06.02 Shortness of breath; D64.9 Anemia, unspecified; I34.0 Nonrheumatic mitral (valve) insufficiency; I25.2 Old myocardial infarction; I25.10 Atherosclerotic heart disease of native coronary artery without angina pectoris; I70.0 Atherosclerosis of aorta; I49.5 Sick sinus syndrome; R05 Cough; E78.5 Hyperlipidemia, unspecified; R94.31 Abnormal electrocardiogram [ECG] [EKG]; F41.9 Anxiety disorder, unspecified; R79.1 Abnormal coagulation profile; Z01.810 Encounter for preprocedural cardiovascular examination; Z79.82 Long term (current) use of aspirin; Z86.73 Personal history of transient ischemic attack (TIA), and cerebral infarction without residual deficits; Z87.891 Personal history of nicotine dependence; Z79.899 Other long term (current) drug therapy; Z98.61 Coronary angioplasty status
CPT/HCPCS: 36415; 71046; 80048; 85025; 96374; G0463; J1940

== ENCOUNTER → 2017-12-31 | Outpatient (CLI) | payer MEDICARE, OTHER ==
[~2017-12-31] MED LIST changes: -FUROSEMIDE 40 MG/4 ML VIAL IV ONE; -FUROSEMIDE 40 MG/4 ML VIAL ONE; -POTASSIUM CHL 10 Meq TABLET PO ONE
== END | disposition home or self-care (01) ==
LOC: Rad HDHVI 15:53
PROVIDERS: ATTEND Internal Medicine Cardiovascular Disease
DX: I20.0 Unstable angina (principal); I48.1 Persistent atrial fibrillation
CPT/HCPCS: 93306

== ENCOUNTER → 2018-01-22 | Outpatient (CLI) | payer MEDICARE, OTHER ==
[~2018-01-22] VITALS: Ht 172.7 cm; Wt 84.4 kg
== END | disposition home or self-care (01) ==
LOC: Rad HDHVI 09:22
PROVIDERS: ATTEND Internal Medicine Cardiovascular Disease
DX: I11.0 Hypertensive heart disease with heart failure (principal); I50.23 Acute on chronic systolic (congestive) heart failure; I42.1 Obstructive hypertrophic cardiomyopathy
CPT/HCPCS: 78452; 93017; 96374; A9500

== ENCOUNTER 2018-01-30 23:17 | Emergency (ER) | payer MEDICARE, OTHER ==
[~2018-01-30] VITALS: Ht 172.7 cm; Wt 84.4 kg
[2018-01-30 23:26] VITALS: BP 127/89
[2018-01-31 00:20] LABS: Basophils # (auto) 0.1 uL; Basophils % (auto) 0.4 % (0.0-2.0); Eosinophils # (auto) 0.1 uL; Eosinophils % (auto) 0.6 % (0.0-7.0); Hematocrit 49.2 % (41.0-53.0); Hemoglobin 16.9 g/dL (13.5-17.5); Lymphocytes # (auto) 1.9 uL; Lymphocytes % (auto) 14.5 % (10.0-50.0); Mean Corpuscular Hemoglobin 31.9 pg (28.0-32.0); Mean Corpuscular Hgb Conc. 34.5 g/dL (32.0-36.0); Mean Corpuscular Volume 92.5 fL (80.0-100.0); Monocytes # (auto) 1.5 uL; Monocytes % (auto) 11.3 % (0.0-12.0); Neutrophils # (auto) 9.7 uL; Neutrophils % (auto) 73.2 % (37.0-80.0); Platelet Count (auto) 178 10^3/uL (140-450); Red Blood Cells 5.32 10^6/uL (4.5-5.90); Red Cell Distribution Width 13.7 % (11.8-14.3); White Blood Cell 13.2 10^3/uL (4.4-10.8)
[2018-01-31 00:37] LABS: Alanine Aminotransferase 42 U/L (16-61); Albumin 3.8 g/dL (3.4-5.0); Anion Gap 8 (5-15); Aspartate Aminotransferase 23 U/L (15-37); Blood Urea Nitrogen 19 mg/dL (7-18); Calcium 8.8 mg/dL (8.5-10.1); Carbon Dioxide 26 mmol/L (21-32); Chloride 104 mmol/L (98-107); GFR African American 82 mL/min; GFR Non-African American 68 mL/min; Glucose 99 mg/dL (74-106); Potassium 4.1 mmol/L (3.5-5.1); Sodium 138 mmol/L (136-145)
[2018-01-31 00:42] LABS: Alkaline Phosphatase 84 U/L (45-117); Bilirubin, Total 0.8 mg/dL (0.2-1.0); Total Protein 7.9 g/dL (6.4-8.2)
== END 2018-01-31 01:54 | disposition left against medical advice (07) ==
LOC: ER 23:19
DX: R03.0 Elevated blood-pressure reading, without diagnosis of hypertension (principal); Z53.21 Procedure and treatment not carried out due to patient leaving prior to being seen by health care provider
CPT/HCPCS: 36415; 80053; 83880; 84484; 85025; 93005

== ENCOUNTER → 2018-01-31 | Outpatient (CLI) | payer MEDICARE, OTHER ==
[2018-01-31 16:14] LABS: Urine Blood Negative /uL (Negative); Urine Specific Gravity 1.015 (1.001-1.035)
== END | disposition home or self-care (01) ==
LOC: LAB 11:46
PROVIDERS: ATTEND Internal Medicine
DX: N39.0 Urinary tract infection, site not specified (principal)
CPT/HCPCS: 81003; 87086

== ENCOUNTER → 2018-02-01 | Outpatient (CLI) | payer MEDICARE, OTHER | END | disposition home or self-care (01) | LOC: Rad HDHVI 08:53 | PROVIDERS: ATTEND Internal Medicine Cardiovascular Disease | DX: J84.10 Pulmonary fibrosis, unspecified (principal) | CPT/HCPCS: 71046 ==

== ENCOUNTER → 2018-04-18 | Outpatient (CLI) | payer MEDICARE, OTHER | END | disposition home or self-care (01) | LOC: Rad HDHVI 12:59 | PROVIDERS: ATTEND Internal Medicine Cardiovascular Disease | DX: I11.0 Hypertensive heart disease with heart failure (principal); I50.33 Acute on chronic diastolic (congestive) heart failure; I48.0 Paroxysmal atrial fibrillation | CPT/HCPCS: 93306 ==

== ENCOUNTER → 2018-06-13 | Outpatient (CLI) | payer MEDICARE, OTHER ==
[2018-06-13 12:09] LABS: Urine Blood Negative /uL (Negative); Urine Specific Gravity 1.011 (1.001-1.035)
== END | disposition home or self-care (01) ==
LOC: LAB 11:22
PROVIDERS: ATTEND Internal Medicine Cardiovascular Disease
DX: N39.0 Urinary tract infection, site not specified (principal)
CPT/HCPCS: 81003; 87086

== ENCOUNTER → 2018-10-28 | Outpatient (CLI) | payer MEDICARE, OTHER | END | disposition home or self-care (01) | LOC: Rad HDHVI 15:02 | PROVIDERS: ATTEND Internal Medicine Cardiovascular Disease | DX: J34.2 Deviated nasal septum (principal); J32.0 Chronic maxillary sinusitis; R51 Headache | CPT/HCPCS: 70486 ==

== ENCOUNTER → 2019-04-03 | Outpatient (CLI) | payer MEDICARE, OTHER | END | disposition home or self-care (01) | LOC: Rad HDHVI 08:09 | PROVIDERS: ATTEND Internal Medicine Cardiovascular Disease | DX: I08.0 Rheumatic disorders of both mitral and aortic valves (principal) | CPT/HCPCS: 93306 ==

== ENCOUNTER → 2019-04-18 | Outpatient (CLI) | payer MEDICARE, OTHER ==
[~2019-04-18] VITALS: Ht 172.7 cm; Wt 90.7 kg
[~2019-04-18] MED LIST changes: +ADENOSINE 76 MG in GIVE UN-DILUTED 0 ML IV ONE; +ADENOSINE 90 MG/30 ML INJ IV ONE
[2019-04-18 12:16] LABS: Urine Blood Negative /uL (Negative); Urine Specific Gravity 1.007 (1.001-1.035)
[2019-04-18 12:18] LABS: Basophils # (auto) 0 uL; Basophils % (auto) 0.3 % (0.0-2.0); Eosinophils # (auto) 0.1 uL; Eosinophils % (auto) 1.4 % (0.0-7.0); Hematocrit 50.1 % (41.0-53.0); Hemoglobin 17.2 g/dL (13.5-17.5); Lymphocytes # (auto) 1.8 uL; Lymphocytes % (auto) 26.6 % (10.0-50.0); Mean Corpuscular Hemoglobin 32.6 pg (28.0-32.0); Mean Corpuscular Hgb Conc. 34.4 g/dL (32.0-36.0); Mean Corpuscular Volume 94.7 fL (80.0-100.0); Monocytes # (auto) 0.9 uL; Monocytes % (auto) 13.1 % (0.0-12.0); Neutrophils # (auto) 3.9 uL; Neutrophils % (auto) 58.6 % (37.0-80.0); Nucleated Red Blood Cells % 0.2 %; Platelet Count (auto) 150 10^3/uL (140-450); Red Blood Cells 5.29 10^6/uL (4.5-5.90); Red Cell Distribution Width 13.7 % (11.8-14.3); White Blood Cell 6.6 10^3/uL (4.4-10.8)
[2019-04-18 12:33] LABS: Albumin 3.8 g/dL (3.4-5.0); BUN/Creatinine Ratio 17.4; Calcium 9.2 mg/dL (8.5-10.1); Potassium 4.5 mmol/L (3.5-5.1)
[2019-04-18 12:36] LABS: Bilirubin, Total 0.8 mg/dL (0.2-1.0); Total Protein 7.4 g/dL (6.4-8.2)
[2019-04-18 13:22] LABS: Free T4 (Free Thyroxine) 1.3 ng/dL (0.89-1.76); Prostate Specific Antigen 0.87 ng/mL (0.0-4.0)
== END | disposition home or self-care (01) ==
LOC: Rad HDHVI 08:30
PROVIDERS: ATTEND Internal Medicine Cardiovascular Disease
DX: I25.10 Atherosclerotic heart disease of native coronary artery without angina pectoris (principal); I25.2 Old myocardial infarction; I10 Essential (primary) hypertension; E78.00 Pure hypercholesterolemia, unspecified; E03.9 Hypothyroidism, unspecified; K90.9 Intestinal malabsorption, unspecified; C61 Malignant neoplasm of prostate; N39.0 Urinary tract infection, site not specified; D51.9 Vitamin B12 deficiency anemia, unspecified; R06.02 Shortness of breath; Z95.0 Presence of cardiac pacemaker; Z95.5 Presence of coronary angioplasty implant and graft; Z79.899 Other long term (current) drug therapy
CPT/HCPCS: 36415; 78452; 80053; 80061; 81003; 82306; 82607; 83036; 84153; 84403; 84439; 84443; 85025; 93005; 96374; 96375; A9500; J0153

== ENCOUNTER → 2019-09-17 | Outpatient (CLI) | payer MEDICARE, OTHER ==
[~2019-09-17] MED LIST changes: -ADENOSINE 76 MG in GIVE UN-DILUTED 0 ML IV ONE; -ADENOSINE 90 MG/30 ML INJ IV ONE
== END | disposition home or self-care (01) ==
LOC: Rad HDHVI 11:21
PROVIDERS: ATTEND Internal Medicine Cardiovascular Disease
DX: I67.2 Cerebral atherosclerosis (principal); I67.82 Cerebral ischemia
CPT/HCPCS: 70450

== ENCOUNTER → 2019-09-19 | Outpatient (CLI) | payer MEDICARE, OTHER | END | disposition home or self-care (01) | LOC: Rad HDHVI 07:52 | PROVIDERS: ATTEND Internal Medicine Cardiovascular Disease | DX: I25.10 Atherosclerotic heart disease of native coronary artery without angina pectoris (principal); I48.20 Chronic atrial fibrillation, unspecified; E78.5 Hyperlipidemia, unspecified | CPT/HCPCS: 93306 ==

== ENCOUNTER → 2019-11-17 | Outpatient (CLI) | payer MEDICARE, OTHER | END | disposition home or self-care (01) | LOC: Rad HDHVI 08:06 | PROVIDERS: ATTEND Internal Medicine Cardiovascular Disease | DX: I63.9 Cerebral infarction, unspecified (principal) ==

== ENCOUNTER → 2020-07-14 | Outpatient (CLI) | payer MEDICARE, OTHER ==
[2020-07-14 15:19] LABS: Urine Blood Negative /uL (Negative); Urine Specific Gravity 1.007 (1.001-1.035)
[2020-07-14 15:25] LABS: Basophils # (auto) 0 10 ^3/uL (0-0.2); Basophils % (auto) 0.4 % (0.0-2.0); Eosinophils # (auto) 0.1 10 ^3/uL (0-0.8); Mean Corpuscular Hemoglobin 32.9 pg (28.0-32.0); Mean Corpuscular Hgb Conc. 35.4 g/dL (32.0-36.0); Neutrophils # (auto) 4.3 10 ^3/uL (1.6-8.6); Neutrophils % (auto) 56.7 % (37.0-80.0); White Blood Cell 7.5 10^3/uL (4.4-10.8)
[2020-07-14 15:31] LABS: Eosinophils % (auto) 0.7 % (0.0-7.0); Hematocrit 50.7 % (41.0-53.0); Hemoglobin 17.9 g/dL (13.5-17.5); Lymphocytes # (auto) 2.4 10 ^3/uL (0.4-5.4); Monocytes # (auto) 0.8 10 ^3/uL (0-1.3); Monocytes % (auto) 10.2 % (0.0-12.0); Platelet Count (auto) 192 10^3/uL (140-450); Red Blood Cells 5.46 10^6/uL (4.5-5.90); Red Cell Distribution Width 13.5 % (11.8-14.3)
[2020-07-14 15:35] LABS: Nucleated Red Blood Cells % 5.3 %
[2020-07-14 15:39] LABS: Albumin 4.1 g/dL (3.4-5.0); BUN/Creatinine Ratio 13.6; Calcium 9.5 mg/dL (8.5-10.1); Potassium 4.6 mmol/L (3.5-5.1)
[2020-07-14 16:05] LABS: Bilirubin, Direct 0.2 mg/dL (0-0.2); Bilirubin, Total 0.8 mg/dL (0.2-1.0)
== END | disposition home or self-care (01) ==
LOC: Rad HDHVI 10:05
PROVIDERS: ATTEND Internal Medicine Cardiovascular Disease
DX: I10 Essential (primary) hypertension (principal); D51.3 Other dietary vitamin B12 deficiency anemia; E55.9 Vitamin D deficiency, unspecified; R00.2 Palpitations; R53.1 Weakness; R30.0 Dysuria; C61 Malignant neoplasm of prostate; Z95.0 Presence of cardiac pacemaker
CPT/HCPCS: 36415; 71046; 80048; 80061; 80076; 80198; 81003; 82306; 83036; 84153; 84403; 85025

== ENCOUNTER → 2020-10-01 | Outpatient (CLI) | payer MEDICARE, OTHER | END | disposition home or self-care (01) | LOC: Rad HDHVI 14:55 | PROVIDERS: ATTEND Internal Medicine Cardiovascular Disease | DX: R00.2 Palpitations (principal); R06.02 Shortness of breath | CPT/HCPCS: 93306 ==

== ENCOUNTER → 2020-10-12 | Outpatient (CLI) | payer MEDICARE, OTHER ==
[~2020-10-12] VITALS: Ht 172.7 cm; Wt 89.4 kg
== END | disposition home or self-care (01) ==
LOC: Rad HDHVI 08:53
PROVIDERS: ATTEND Internal Medicine Cardiovascular Disease
DX: I25.10 Atherosclerotic heart disease of native coronary artery without angina pectoris (principal); I10 Essential (primary) hypertension; E78.5 Hyperlipidemia, unspecified; I25.2 Old myocardial infarction; Z95.0 Presence of cardiac pacemaker
CPT/HCPCS: 78452; 93017; 96374; A9500

== ENCOUNTER → 2021-03-18 | Outpatient (CLI) | payer MEDICARE, OTHER | END | disposition home or self-care (01) | LOC: Rad HDHVI 10:48 | PROVIDERS: ATTEND Internal Medicine Cardiovascular Disease | DX: R91.1 Solitary pulmonary nodule (principal); R06.02 Shortness of breath | CPT/HCPCS: 71046 ==

== ENCOUNTER 2021-05-25 20:09 | Emergency (ER) | payer MEDICARE, OTHER ==
[~2021-05-25] VITALS: Ht 170.2 cm; Wt 81.6 kg
[2021-05-25 20:58] LABS: Basophils # (auto) 0 10 ^3/uL (0-0.2); Basophils % (auto) 0.1 % (0.0-2.0); Eosinophils # (auto) 0 10 ^3/uL (0-0.8); Hematocrit 52.1 % (41.0-53.0); Hemoglobin 17.9 g/dL (13.5-17.5); Lymphocytes # (auto) 0.6 10 ^3/uL (0.4-5.4); Lymphocytes % (auto) 5.2 % (10.0-50.0); Mean Corpuscular Hemoglobin 31.7 pg (28.0-32.0); Mean Corpuscular Hgb Conc. 34.3 g/dL (32.0-36.0); Mean Corpuscular Volume 92.3 fL (80.0-100.0); Monocytes # (auto) 0.5 10 ^3/uL (0-1.3); Monocytes % (auto) 3.9 % (0.0-12.0); Neutrophils # (auto) 11.1 10 ^3/uL (1.6-8.6); Neutrophils % (auto) 90.8 % (37.0-80.0); Nucleated Red Blood Cells % 0.5 %; Red Blood Cells 5.64 10^6/uL (4.5-5.90); Red Cell Distribution Width 15.5 % (11.8-14.3); White Blood Cell 12.2 10^3/uL (4.4-10.8)
[2021-05-25 21:04] LABS: Albumin 3.6 g/dL (3.4-5.0); BUN/Creatinine Ratio 14.9; Calcium 9.1 mg/dL (8.5-10.1); Potassium 3.9 mmol/L (3.5-5.1)
[2021-05-25 21:09] LABS: Bilirubin, Total 0.9 mg/dL (0.2-1.0); Total Protein 7.1 g/dL (6.4-8.2)
[2021-05-25 23:43] LABS: Urine Bacteria FEW /hpf (None Seen); Urine Blood Negative /uL (Negative); Urine Mucus FEW (None Seen); Urine Specific Gravity 1.025 (1.001-1.035); Urine WBC 1 /hpf (0 - 3)
[2021-05-26] MEDS ORDERED: AMOXICILLIN/CLAVUL 875 MG TAB PO ONE (01:30)
[2021-05-26] MEDS ORDERED: AMOX500T86 PO ×2 (01:47)
[2021-05-26 02:11] VITALS: BP 97/56
[2021-05-27] MEDS ORDERED: MONT5CHW23 PO (17:47)
[2021-05-27] MEDS ORDERED: FURO1TAB33 PO (17:47)
[2021-05-27] MEDS ORDERED: RIVA10TA PO (17:47)
== END 2021-05-26 02:15 | disposition home or self-care (01) ==
LOC: EDBD 20:09 → ER 20:12
DX: R05.9 Cough, unspecified (principal); R06.02 Shortness of breath; E78.5 Hyperlipidemia, unspecified; I10 Essential (primary) hypertension
CPT/HCPCS: 36415; 71045; 80053; 81001; 83735; 83880; 84484; 85025; 93005

== ENCOUNTER 2021-05-27 10:26 | Inpatient (IN) | payer MEDICARE, OTHER ==
[~2021-05-27] VITALS: Ht 170.2 cm; Wt 88.8 kg
[~2021-05-27 10:26] MED LIST changes: +AMOX500T86 PO
[2021-05-27 11:25] LABS: Basophils # (auto) 0.1 10 ^3/uL (0-0.2); Basophils % (auto) 0.6 % (0.0-2.0); Eosinophils # (auto) 0 10 ^3/uL (0-0.8); Hematocrit 48.7 % (41.0-53.0); Hemoglobin 16.5 g/dL (13.5-17.5); Lymphocytes # (auto) 1.1 10 ^3/uL (0.4-5.4); Mean Corpuscular Hemoglobin 31.3 pg (28.0-32.0); Mean Corpuscular Hgb Conc. 33.9 g/dL (32.0-36.0); Mean Corpuscular Volume 92.3 fL (80.0-100.0); Monocytes # (auto) 1.2 10 ^3/uL (0-1.3); Neutrophils # (auto) 12.8 10 ^3/uL (1.6-8.6); Neutrophils % (auto) 84.4 % (37.0-80.0); Nucleated Red Blood Cells % 0.1 %; Red Blood Cells 5.28 10^6/uL (4.5-5.90); Red Cell Distribution Width 15.9 % (11.8-14.3); White Blood Cell 15.2 10^3/uL (4.4-10.8)
[2021-05-27 11:46] LABS: INR 1.18 (0.9-1.15); Partial Thromboplastin Time 32.2 sec (23.6-33.0)
[2021-05-27 11:47] LABS: Albumin 3.2 g/dL (3.4-5.0); BUN/Creatinine Ratio 13.5; Calcium 9.2 mg/dL (8.5-10.1); Potassium 4.5 mmol/L (3.5-5.1)
[2021-05-27 11:48] LABS: Bilirubin, Total 1.1 mg/dL (0.2-1.0); Total Protein 6.9 g/dL (6.4-8.2)
[2021-05-27] MEDS ORDERED: ACETAMINOPHEN 325 MG TAB PO PRN ×2 (14:00)
[2021-05-27] MEDS ORDERED: MORPHINE SULFATE INJECTION 2 MG/ML SYRG IV PRN (14:00)
[2021-05-27] MEDS ORDERED: DOCUSATE SOD 100 MG CAP PO PRN (14:00)
[2021-05-27] MEDS ORDERED: cefTRIAXone 1GM/50ML D5W 50 ML IV ONE ×2 (14:15→16:18)
[2021-05-27] MEDS ORDERED: ALBUTEROL SULF 2.5 MG/0.5ML(0.5%) NEB SOLN NEB PRN (14:30)
[2021-05-27] MEDS ORDERED: IPRATROPIUM BROM 0.5 MG/2.5ML INH SOL NEB PRN (14:30)
[2021-05-27] MEDS ORDERED: hydrALAZINE HCL 20 MG/ML VL IV PRN (14:30)
[2021-05-27 14:45] VITALS: BP 138/84
[2021-05-27 15:02] LABS: Cholesterol 156 mg/dL (< 200)
[2021-05-27 15:05] LABS: HDL Cholesterol 37 mg/dL (40-59); LDL Cholesterol 101 mg/dL (< 100); Triglycerides 119 mg/dL (< 150)
[2021-05-27 15:53] LABS: Urine Bacteria NONE SEEN /hpf (None Seen); Urine Blood TRACE /uL (Negative); Urine Specific Gravity 1.015 (1.001-1.035); Urine WBC 1 /hpf (0 - 3)
[2021-05-27 17:26] VITALS: BP 146/87
[2021-05-27] MEDS ORDERED: RIVA10TA PO (17:47)
[2021-05-27] MEDS ORDERED: MONT5CHW23 PO (17:47)
[2021-05-27] MEDS ORDERED: FURO1TAB33 PO (17:47)
[2021-05-27] MEDS ORDERED: DEXTROSE (50%) 50ML SYRG IV PRN (19:45)
[2021-05-27 22:00] VITALS: BP 142/88
[2021-05-27] MEDS ORDERED: METOPROLOL SUCCINATE XL 50 MG TAB PO SCH (22:00)
[2021-05-27] MEDS: ACCU-CHEK COMFORT CURVE STRIP VI SCH (22:38)
[2021-05-27] MEDS: HYDROcodone-ACET 5/325MG TAB PO PRN (22:39)
[2021-05-27] MEDS: InsuLIN REG 1unit/0.01ml Soln (100units/ml) SC SCH (22:57)
[2021-05-27] MEDS: SODIUM CHLORIDE 0.9% 1,000 ML IV SCH (23:06)
[2021-05-28] MEDS: SODIUM CHLORIDE 0.9% 1,000 ML IV SCH ×2 (02:30→12:37)
[2021-05-28 05:00] VITALS: BP 143/85
[2021-05-28 06:59] LABS: Alanine Aminotransferase 42 U/L (16-61); Albumin 2.8 g/dL (3.4-5.0); Anion Gap 5 (5-15); Aspartate Aminotransferase 28 U/L (15-37); BUN/Creatinine Ratio 16.7; Blood Urea Nitrogen 15 mg/dL (7-18); Calcium 8.7 mg/dL (8.5-10.1); Carbon Dioxide 23 mmol/L (21-32); Chloride 107 mmol/L (98-107); GFR African American 105 mL/min; GFR Non-African American 87 mL/min; Glucose 116 mg/dL (74-106); Potassium 4.6 mmol/L (3.5-5.1); Sodium 135 mmol/L (136-145)
[2021-05-28] MEDS: InsuLIN REG 1unit/0.01ml Soln (100units/ml) SC SCH ×2 (07:00→11:30)
[2021-05-28 07:02] LABS: Alkaline Phosphatase 106 U/L (45-117); Bilirubin, Total 0.9 mg/dL (0.2-1.0); Total Protein 6.8 g/dL (6.4-8.2)
[2021-05-28] MEDS: ACCU-CHEK COMFORT CURVE STRIP VI SCH ×2 (07:37→11:30)
[2021-05-28 08:00] VITALS: BP 168/86
[2021-05-28 08:42] LABS: Basophils # (auto) 0 10 ^3/uL (0-0.2); Basophils % (auto) 0.1 % (0.0-2.0); Eosinophils # (auto) 0 10 ^3/uL (0-0.8); Eosinophils % (auto) 0.1 % (0.0-7.0); Hematocrit 49.6 % (41.0-53.0); Hemoglobin 16.8 g/dL (13.5-17.5); Lymphocytes # (auto) 1.9 10 ^3/uL (0.4-5.4); Lymphocytes % (auto) 13.1 % (10.0-50.0); Mean Corpuscular Hemoglobin 31.5 pg (28.0-32.0); Mean Corpuscular Hgb Conc. 33.9 g/dL (32.0-36.0); Mean Corpuscular Volume 93.2 fL (80.0-100.0); Monocytes # (auto) 1.5 10 ^3/uL (0-1.3); Monocytes % (auto) 10.3 % (0.0-12.0); Neutrophils # (auto) 11.2 10 ^3/uL (1.6-8.6); Neutrophils % (auto) 76.4 % (37.0-80.0); Nucleated Red Blood Cells % 0.1 %; Red Blood Cells 5.32 10^6/uL (4.5-5.90); Red Cell Distribution Width 15.8 % (11.8-14.3); White Blood Cell 14.7 10^3/uL (4.4-10.8)
[2021-05-28] MEDS ORDERED: cefTRIAXone 1GM/50ML D5W 50 ML IV SCH (09:00)
[2021-05-28] MEDS ORDERED: METOPROLOL SUCCINATE XL 50 MG TAB PO SCH (10:00)
[2021-05-28] MEDS ORDERED: DIGOXIN 0.125 MG TAB PO SCH (10:00)
[2021-05-28] MEDS ORDERED: ENOXAPARIN SOD 30 MG/0.3 ML SYRINGE SC SCH (10:00)
[2021-05-28] MEDS ORDERED: LUTEIN 25 MG PO SCH (10:00)
[2021-05-28] MEDS ORDERED: RIVAROXABAN 20 MG TAB PO SCH (10:00)
[2021-05-28 12:00] VITALS: BP 162/103
[2021-05-28] MEDS: HYDROcodone-ACET 5/325MG TAB PO PRN (12:38)
[2021-05-28 13:00] VITALS: BP 141/86
[2021-05-28 16:00] VITALS: BP_SYST 145; BP_SYST 151; BP_DIAS 89; BP_DIAS 91
[2021-05-28 17:34] VITALS: BP 145/91
== END 2021-05-28 18:19 | disposition home or self-care (01) | DRG 309 ==
LOC: ER 10:26 → TELE 14:00 → TELE-EAST 16:58
PROVIDERS: ADMIT Registered Nurse; ATTEND Registered Nurse
PROC: 5A09357 Assistance with Respiratory Ventilation, Less than 24 Consecutive Hours, Continuous Positive Airway Pressure (ICD-10-PCS; principal; 2021-05-27)
DX: I48.0 Paroxysmal atrial fibrillation (principal); N17.9 Acute kidney failure, unspecified; E44.1 Mild protein-calorie malnutrition; R06.03 Acute respiratory distress; D72.829 Elevated white blood cell count, unspecified; E78.5 Hyperlipidemia, unspecified; Z20.822 Contact with and (suspected) exposure to COVID-19; I12.9 Hypertensive chronic kidney disease with stage 1 through stage 4 chronic kidney disease, or unspecified chronic kidney disease; I20.9 Angina pectoris, unspecified; D69.6 Thrombocytopenia, unspecified; N18.30 Chronic kidney disease, stage 3 unspecified; M25.512 Pain in left shoulder; R73.9 Hyperglycemia, unspecified; Z95.0 Presence of cardiac pacemaker; Z68.30 Body mass index [BMI] 30.0-30.9, adult
CPT/HCPCS: 36415; 71045; 73030; 80053; 80061; 81001; 82962; 83036; 83735; 83880; 84443; 84484; 85025; 85610; 85730; 87086; 93005; 93306; 94660; G0378; J0696; J1815

== ENCOUNTER → 2021-08-03 | Outpatient (CLI) | payer MEDICARE, OTHER ==
[~2021-08-03] MED LIST changes: +FURO1TAB33 PO; +MONT5CHW23 PO; +RIVA10TA PO
[2021-08-03 12:14] LABS: Eosinophils # (auto) 0.1 10 ^3/uL (0-0.8); Eosinophils % (auto) 0.9 % (0.0-7.0); Hemoglobin 19.2 g/dL (13.5-17.5); Lymphocytes # (auto) 2.5 10 ^3/uL (0.4-5.4); Nucleated Red Blood Cells % 0.3 %
[2021-08-03 12:16] LABS: Basophils # (auto) 0.1 10 ^3/uL (0-0.2); Basophils % (auto) 0.8 % (0.0-2.0); Lymphocytes % (auto) 27.8 % (10.0-50.0); Mean Corpuscular Hemoglobin 31.9 pg (28.0-32.0); Mean Corpuscular Volume 93.9 fL (80.0-100.0); Monocytes % (auto) 11.1 % (0.0-12.0); Neutrophils # (auto) 5.2 10 ^3/uL (1.6-8.6); Neutrophils % (auto) 59.4 % (37.0-80.0); Red Blood Cells 6.01 10^6/uL (4.5-5.90); Red Cell Distribution Width 14.8 % (11.8-14.3); White Blood Cell 8.8 10^3/uL (4.4-10.8)
[2021-08-03 12:19] LABS: Urine Blood Negative /uL (Negative); Urine Specific Gravity 1.021 (1.001-1.035)
[2021-08-03 12:22] LABS: Potassium 4.4 mmol/L (3.5-5.1)
[2021-08-03 12:29] LABS: Albumin 3.5 g/dL (3.4-5.0); BUN/Creatinine Ratio 10.1; Bilirubin, Total 0.8 mg/dL (0.2-1.0); Calcium 9.4 mg/dL (8.5-10.1); Total Protein 7.7 g/dL (6.4-8.2)
[2021-08-03 12:34] LABS: Free T4 (Free Thyroxine) 1.01 ng/dL (0.89-1.76); Prostate Specific Antigen 0.96 ng/mL (0.0-4.0)
[2021-08-03 12:53] LABS: Hematocrit 56.4 % (41.0-53.0)
== END | disposition home or self-care (01) ==
LOC: LAB 07:59
PROVIDERS: ATTEND Internal Medicine Cardiovascular Disease
DX: C61 Malignant neoplasm of prostate (principal); D51.3 Other dietary vitamin B12 deficiency anemia; E11.9 Type 2 diabetes mellitus without complications; E55.9 Vitamin D deficiency, unspecified; I10 Essential (primary) hypertension; R00.2 Palpitations; R53.1 Weakness; R30.0 Dysuria
CPT/HCPCS: 36415; 80053; 80061; 81003; 82306; 82607; 83036; 84153; 84403; 84439; 84443; 85025

== ENCOUNTER → 2021-10-10 | Outpatient (CLI) | payer MEDICARE, OTHER ==
[2021-10-10 11:30] LABS: Basophils # (auto) 0 10 ^3/uL (0-0.2); Eosinophils # (auto) 0 10 ^3/uL (0-0.8); Lymphocytes # (auto) 1.9 10 ^3/uL (0.4-5.4); Monocytes # (auto) 0.6 10 ^3/uL (0-1.3)
[2021-10-10 11:33] LABS: Basophils % (auto) 0.2 % (0.0-2.0); Hemoglobin 18.7 g/dL (13.5-17.5); Lymphocytes % (auto) 16.7 % (10.0-50.0); Mean Corpuscular Hemoglobin 30.1 pg (28.0-32.0); Mean Corpuscular Hgb Conc. 32.7 g/dL (32.0-36.0); Mean Corpuscular Volume 92.1 fL (80.0-100.0); Monocytes % (auto) 5.2 % (0.0-12.0); Neutrophils # (auto) 8.9 10 ^3/uL (1.6-8.6); Neutrophils % (auto) 77.9 % (37.0-80.0); Nucleated Red Blood Cells % 0.2 %; Red Blood Cells 6.22 10^6/uL (4.5-5.90); Red Cell Distribution Width 14.5 % (11.8-14.3); White Blood Cell 11.5 10^3/uL (4.4-10.8)
[2021-10-10 11:49] LABS: Hematocrit 57.2 % (41.0-53.0)
== END | disposition home or self-care (01) ==
LOC: LAB 09:26
PROVIDERS: ATTEND Internal Medicine Cardiovascular Disease
DX: D64.9 Anemia, unspecified (principal)
CPT/HCPCS: 36415; 85025

== ENCOUNTER → 2021-12-23 | Outpatient (CLI) | payer MEDICARE, OTHER ==
[2021-12-23 17:21] LABS: Basophils # (auto) 0 10 ^3/uL (0-0.2); Eosinophils # (auto) 0.1 10 ^3/uL (0-0.8); Eosinophils % (auto) 1.1 % (0.0-7.0); Monocytes # (auto) 1.4 10 ^3/uL (0-1.3); Red Cell Distribution Width 16.6 % (11.8-14.3)
[2021-12-23 17:23] LABS: Basophils % (auto) 0.5 % (0.0-2.0); Hemoglobin 18.5 g/dL (13.5-17.5); Lymphocytes # (auto) 2.8 10 ^3/uL (0.4-5.4); Lymphocytes % (auto) 30.2 % (10.0-50.0); Mean Corpuscular Hemoglobin 31.4 pg (28.0-32.0); Mean Corpuscular Volume 95.3 fL (80.0-100.0); Monocytes % (auto) 14.9 % (0.0-12.0); Neutrophils % (auto) 53.3 % (37.0-80.0); Nucleated Red Blood Cells % 0.3 %; Red Blood Cells 5.88 10^6/uL (4.5-5.90); White Blood Cell 9.4 10^3/uL (4.4-10.8)
[2021-12-23 17:25] LABS: Urine Blood Negative /uL (Negative)
[2021-12-23 17:31] LABS: Albumin 3.9 g/dL (3.4-5.0); Calcium 9.4 mg/dL (8.5-10.1); Potassium 4.6 mmol/L (3.5-5.1)
[2021-12-23 17:35] LABS: BUN/Creatinine Ratio 8.2; Bilirubin, Direct 0.3 mg/dL (0-0.2); Total Protein 7.7 g/dL (6.4-8.2)
== END | disposition home or self-care (01) ==
LOC: LAB 12:17
PROVIDERS: ATTEND Internal Medicine Cardiovascular Disease
DX: C61 Malignant neoplasm of prostate (principal); I10 Essential (primary) hypertension; E55.9 Vitamin D deficiency, unspecified; D51.3 Other dietary vitamin B12 deficiency anemia; D64.9 Anemia, unspecified; E11.9 Type 2 diabetes mellitus without complications; R00.2 Palpitations; R53.1 Weakness; R30.0 Dysuria
CPT/HCPCS: 36415; 80048; 80061; 80076; 81003; 82306; 83036; 84153; 84403; 84443; 85025; 87086

== ENCOUNTER → 2021-12-26 | Outpatient (CLI) | payer MEDICARE, OTHER | END | disposition home or self-care (01) | LOC: Rad HDHVI 09:42 | PROVIDERS: ATTEND Internal Medicine Cardiovascular Disease | DX: I67.82 Cerebral ischemia (principal); I67.2 Cerebral atherosclerosis; I63.9 Cerebral infarction, unspecified | CPT/HCPCS: 70450 ==

== ENCOUNTER → 2021-12-27 | Outpatient (CLI) | payer MEDICARE, OTHER | END | disposition home or self-care (01) | LOC: Rad HDHVI 13:35 | PROVIDERS: ATTEND Internal Medicine Cardiovascular Disease | DX: I08.3 Combined rheumatic disorders of mitral, aortic and tricuspid valves (principal); I10 Essential (primary) hypertension; R00.2 Palpitations; R06.02 Shortness of breath; I11.9 Hypertensive heart disease without heart failure | CPT/HCPCS: 93306 ==

== ENCOUNTER → 2021-12-28 | Outpatient (CLI) | payer MEDICARE, OTHER | END | disposition home or self-care (01) | LOC: Rad HDHVI 15:48 | PROVIDERS: ATTEND Internal Medicine Cardiovascular Disease | DX: I65.23 Occlusion and stenosis of bilateral carotid arteries (principal); I10 Essential (primary) hypertension; E78.5 Hyperlipidemia, unspecified | CPT/HCPCS: 93880 ==

== ENCOUNTER → 2022-01-20 | Outpatient (CLI) | payer MEDICARE, OTHER ==
[~2022-01-20] MED LIST changes: +ACET1CAP18 PO; +ASCO500T11 PO; +CHOL20007 PO; +FAMO20TA10 PO; +IVAB1.7T PO; +MISCCAP66 PO; +MULT-688 PO; +SACU1TAB PO; +ZINC50TA7 PO
[2022-01-20 08:12] VITALS: BP 153/81
[2022-01-20 08:28] VITALS: BP 139/86
[2022-01-20 12:15] LABS: Basophils # (auto) 0.1 10 ^3/uL (0-0.2); Basophils % (auto) 0.7 % (0.0-2.0); Eosinophils # (auto) 0.1 10 ^3/uL (0-0.8); Eosinophils % (auto) 1.4 % (0.0-7.0); Hematocrit 55.7 % (41.0-53.0); Hemoglobin 18.3 g/dL (13.5-17.5); Lymphocytes # (auto) 2.7 10 ^3/uL (0.4-5.4); Lymphocytes % (auto) 31.9 % (10.0-50.0); Mean Corpuscular Hemoglobin 31.6 pg (28.0-32.0); Mean Corpuscular Hgb Conc. 32.9 g/dL (32.0-36.0); Mean Corpuscular Volume 96.3 fL (80.0-100.0); Monocytes # (auto) 0.9 10 ^3/uL (0-1.3); Monocytes % (auto) 10.8 % (0.0-12.0); Neutrophils # (auto) 4.7 10 ^3/uL (1.6-8.6); Neutrophils % (auto) 55.2 % (37.0-80.0); Nucleated Red Blood Cells % 0.1 %; Red Blood Cells 5.78 10^6/uL (4.5-5.90); White Blood Cell 8.5 10^3/uL (4.4-10.8)
[2022-01-20 12:27] LABS: BUN/Creatinine Ratio 17.1; Calcium 9.3 mg/dL (8.5-10.1); Potassium 5.2 mmol/L (3.5-5.1)
[2022-01-20 12:44] LABS: INR 1.11 (0.9-1.15); Partial Thromboplastin Time 34.1 sec (24.6-33.4)
== END | disposition home or self-care (01) ==
LOC: Rad HDHVI 08:08
PROVIDERS: ATTEND Internal Medicine Cardiovascular Disease
DX: R79.1 Abnormal coagulation profile (principal)
CPT/HCPCS: 36415; 71046; 80048; 85025; 85610; 85730; 93005; G0463

== ENCOUNTER 2022-01-24 10:02 | Day surgery (SDC) | payer MEDICARE, OTHER ==
[~2022-01-24] VITALS: Ht 172.7 cm; Wt 87.5 kg
[~2022-01-24 10:02] MED LIST changes: -AMOX500T86 PO; -CHOL100079 PO; -DIGO0.124 PO; -LORA-622 PO; -LUTE20CA PO; -RIVA20TA PO; -[UNRECOGNIZED DRUG - CODE] PO
[2022-01-24] MEDS ORDERED: LIDOCAINE 2%HCL (LOCAL ANESTH.) INJ 20ML MDV ONE (11:51)
[2022-01-24] MEDS ORDERED: fentaNYL CITRATE 100 MCG/2 ML VL ONE (11:54)
[2022-01-24] MEDS ORDERED: VANCOMYCIN HCL 1000 MG VL ONE (11:54)
[2022-01-24] MEDS ORDERED: diphenhdrAMINE HCL 50 MG/1 ML VL ONE (11:54)
[2022-01-24] MEDS ORDERED: MIDAZOLAM HCL 2MG/2ML 2ml VIAL (1mg/ml) ONE (11:55)
[2022-01-24] MEDS ORDERED: VANCOMYCIN 1GM/250ML 250 ML IV ONE (11:55)
== END 2022-01-24 15:30 | disposition home or self-care (01) ==
LOC: CATH 10:02
PROVIDERS: ATTEND Internal Medicine Cardiovascular Disease
DX: Z45.010 Encounter for checking and testing of cardiac pacemaker pulse generator [battery] (principal); I11.9 Hypertensive heart disease without heart failure; I25.10 Atherosclerotic heart disease of native coronary artery without angina pectoris; Z95.5 Presence of coronary angioplasty implant and graft; I25.2 Old myocardial infarction; E78.5 Hyperlipidemia, unspecified; I49.5 Sick sinus syndrome; I48.91 Unspecified atrial fibrillation; I65.29 Occlusion and stenosis of unspecified carotid artery; Z79.899 Other long term (current) drug therapy; Z79.82 Long term (current) use of aspirin; Z20.822 Contact with and (suspected) exposure to COVID-19
CPT/HCPCS: 33228; 93005; C1785; J1200; J2250; J3010; J3370; U0003; 33208; 99152; 99153

== ENCOUNTER → 2022-02-02 | Outpatient (CLI) | payer MEDICARE, OTHER ==
[2022-02-02 11:21] VITALS: BP 138/90
[2022-02-02 11:38] VITALS: BP 138/87
== END | disposition home or self-care (01) ==
LOC: CHF HDHVI 11:23
PROVIDERS: ATTEND Internal Medicine
DX: Z48.00 Encounter for change or removal of nonsurgical wound dressing (principal); I44.30 Unspecified atrioventricular block; Z95.0 Presence of cardiac pacemaker
CPT/HCPCS: G0463

== ENCOUNTER 2022-03-09 06:57 | Inpatient (IN) | payer MEDICARE, OTHER ==
[~2022-03-09] VITALS: Ht 170.2 cm; Wt 88.1 kg
[2022-03-09] VITALS (53 sets, daily range): BP systolic 64–167; BP diastolic 28–99
[2022-03-09] MEDS ORDERED: HEPARIN IN NS 1000Units/500mL 1,500 ML ONE (07:58)
[2022-03-09] MEDS ORDERED: IOHEXOL 350 MG/ML 100ML IJ ONE ×2 (07:58→10:15)
[2022-03-09] MEDS ORDERED: LIDOCAINE 2%HCL (LOCAL ANESTH.) INJ 10ml MDV ONE (07:58)
[2022-03-09] MEDS ORDERED: SODIUM CHL 0.9% 50 ML ONE (08:19)
[2022-03-09] MEDS ORDERED: ANGIOMAX 250 MG VIAL IV ONE (08:19)
[2022-03-09] MEDS ORDERED: GLYCOPYRROLATE 0.2 MG/ML 1ML VIAL ONE (08:19)
[2022-03-09] MEDS ORDERED: ALPRAZolam 0.5 MG TAB PO ONE (08:45)
[2022-03-09] MEDS ORDERED: ALPRAZolam 0.5 MG TAB ONE (08:45)
[2022-03-09] MEDS ORDERED: PHENYLEPHRINE IV 250 ML IV ONE ×2 (09:17→17:56)
[2022-03-09] MEDS ORDERED: MIDAZOLAM HCL 2MG/2ML 2ml VIAL (1mg/ml) ONE (10:04)
[2022-03-09] MEDS ORDERED: CLOPIDOGREL 300 MG TAB ONE (10:51)
[2022-03-09] MEDS: PHENYLEPHRINE IV 250 ML IV SCH ×2 (11:12→18:00)
[2022-03-10] VITALS (96 sets, daily range): BP systolic 60–163; BP diastolic 32–92
[2022-03-10] MEDS: PHENYLEPHRINE IV 250 ML IV SCH ×3 (05:40→19:00)
[2022-03-10] MEDS ORDERED: SODIUM CHLORIDE 0.9% 500 ML IV ONE (09:15)
[2022-03-10] MEDS ORDERED: ACETAMINOPHEN 325 MG TAB PO ONE (09:51)
[2022-03-10] MEDS: CLOPIDOGREL BISULFATE 75 MG TAB PO SCH (09:53)
[2022-03-10] MEDS ORDERED: ACETAMINOPHEN 325 MG TAB PO PRN (10:00)
[2022-03-10] MEDS: FLUDROCORTISONE ACETATE 0.1 MG TAB PO SCH ×2 (12:11→22:00)
[2022-03-11] VITALS (94 sets, daily range): BP systolic 62–168; BP diastolic 31–105
[2022-03-11] MEDS: PHENYLEPHRINE IV 250 ML IV SCH ×2 (07:25→17:30)
[2022-03-11] MEDS: FLUDROCORTISONE ACETATE 0.1 MG TAB PO SCH ×2 (10:03→22:00)
[2022-03-11] MEDS: CLOPIDOGREL BISULFATE 75 MG TAB PO SCH (10:03)
[2022-03-11 10:54] LABS: Basophils # (auto) 0 10 ^3/uL (0-0.2); Basophils % (auto) 0.3 % (0.0-2.0); Eosinophils # (auto) 0.1 10 ^3/uL (0-0.8); Eosinophils % (auto) 1.2 % (0.0-7.0); Hematocrit 48.2 % (41.0-53.0); Hemoglobin 15.9 g/dL (13.5-17.5); Lymphocytes # (auto) 1.5 10 ^3/uL (0.4-5.4); Lymphocytes % (auto) 23.7 % (10.0-50.0); Mean Corpuscular Hemoglobin 31.5 pg (28.0-32.0); Mean Corpuscular Hgb Conc. 32.9 g/dL (32.0-36.0); Mean Corpuscular Volume 95.6 fL (80.0-100.0); Monocytes # (auto) 0.4 10 ^3/uL (0-1.3); Monocytes % (auto) 6.6 % (0.0-12.0); Neutrophils # (auto) 4.4 10 ^3/uL (1.6-8.6); Neutrophils % (auto) 68.2 % (37.0-80.0); Red Blood Cells 5.04 10^6/uL (4.5-5.90); Red Cell Distribution Width 13.5 % (11.8-14.3); White Blood Cell 6.4 10^3/uL (4.4-10.8)
[2022-03-11 11:06] LABS: BUN/Creatinine Ratio 14.8; Calcium 8.6 mg/dL (8.5-10.1); Potassium 4.5 mmol/L (3.5-5.1)
[2022-03-12] VITALS (92 sets, daily range): BP systolic 66–165; BP diastolic 36–97
[2022-03-12] MEDS: PHENYLEPHRINE IV 250 ML IV SCH ×3 (01:50→18:30)
[2022-03-12] MEDS: FLUDROCORTISONE ACETATE 0.1 MG TAB PO SCH ×2 (10:30→21:09)
[2022-03-12] MEDS: CLOPIDOGREL BISULFATE 75 MG TAB PO SCH (10:30)
[2022-03-12] MEDS ORDERED: SODIUM CHLORIDE 0.9% 500 ML IV ONE (15:15)
[2022-03-13] VITALS (44 sets, daily range): BP systolic 76–165; BP diastolic 36–97
[2022-03-13] MEDS: FLUDROCORTISONE ACETATE 0.1 MG TAB PO SCH (10:35)
[2022-03-13] MEDS: CLOPIDOGREL BISULFATE 75 MG TAB PO SCH (10:35)
== END 2022-03-13 15:30 | disposition home or self-care (01) | DRG 36 ==
LOC: CATH 06:57 → TELE 12:10 → ICU WEST 18:12
PROVIDERS: ADMIT Internal Medicine Cardiovascular Disease; ATTEND Internal Medicine Cardiovascular Disease
PROC: 037K34Z Dilation of Right Internal Carotid Artery with Drug-eluting Intraluminal Device, Percutaneous Approach (ICD-10-PCS; principal; 2022-03-09)
PROC: B3151ZZ Fluoroscopy of Bilateral Common Carotid Arteries using Low Osmolar Contrast (ICD-10-PCS; 2022-03-09)
PROC: B3181ZZ Fluoroscopy of Bilateral Internal Carotid Arteries using Low Osmolar Contrast (ICD-10-PCS; 2022-03-09)
PROC: B31B1ZZ Fluoroscopy of Left External Carotid Artery using Low Osmolar Contrast (ICD-10-PCS; 2022-03-09)
PROC: B31Q1ZZ Fluoroscopy of Cervico-Cerebral Arch using Low Osmolar Contrast (ICD-10-PCS; 2022-03-09)
PROC: B31G1ZZ Fluoroscopy of Bilateral Vertebral Arteries using Low Osmolar Contrast (ICD-10-PCS; 2022-03-09)
DX: I65.21 Occlusion and stenosis of right carotid artery (principal); I25.10 Atherosclerotic heart disease of native coronary artery without angina pectoris; E66.01 Morbid (severe) obesity due to excess calories; I49.5 Sick sinus syndrome; I73.9 Peripheral vascular disease, unspecified; Z20.822 Contact with and (suspected) exposure to COVID-19; I50.9 Heart failure, unspecified; Z95.5 Presence of coronary angioplasty implant and graft; Z95.820 Peripheral vascular angioplasty status with implants and grafts; Z68.30 Body mass index [BMI] 30.0-30.9, adult; I65.22 Occlusion and stenosis of left carotid artery
CPT/HCPCS: 36223; 36224; 36226; 36415; 37215; 71046; 80048; 85025; 85610; 85730; 87081; 97163; 99152; 99153; G0378; G0463; J2001; J2250

== ENCOUNTER → 2022-03-27 | Outpatient (CLI) | payer MEDICARE, OTHER ==
[2022-03-27 16:40] LABS: Urine Blood Negative /uL (Negative); Urine Specific Gravity 1.021 (1.001-1.035)
== END | disposition home or self-care (01) ==
LOC: LAB 13:16
PROVIDERS: ATTEND Internal Medicine Cardiovascular Disease
DX: N39.0 Urinary tract infection, site not specified (principal)
CPT/HCPCS: 81003

== ENCOUNTER → 2022-04-12 | Outpatient (CLI) | payer MEDICARE, OTHER | END | disposition home or self-care (01) | LOC: LAB 11:28 | PROVIDERS: ATTEND Internal Medicine | DX: R94.4 Abnormal results of kidney function studies (principal) | CPT/HCPCS: 36415; 82565; 84520 ==

== ENCOUNTER → 2022-04-13 | Outpatient (CLI) | payer MEDICARE, OTHER ==
[~2022-04-13] MED LIST changes: +IOHEXOL 350 MG/ML 100ML IJ ONE
[2022-04-13 10:14] VITALS: BP 144/87
[2022-04-13 10:33] VITALS: BP 142/84
== END | disposition home or self-care (01) ==
LOC: Rad HDHVI 09:54
PROVIDERS: ATTEND Internal Medicine
DX: Z03.89 Encounter for observation for other suspected diseases and conditions ruled out (principal); G31.9 Degenerative disease of nervous system, unspecified; I67.82 Cerebral ischemia; R90.82 White matter disease, unspecified
CPT/HCPCS: 70470; G0463; Q9967

== ENCOUNTER → 2022-05-30 | Outpatient (CLI) | payer MEDICARE, OTHER ==
[~2022-05-30] MED LIST changes: -IOHEXOL 350 MG/ML 100ML IJ ONE
== END | disposition home or self-care (01) ==
LOC: Rad HDHVI 08:53
PROVIDERS: ATTEND Internal Medicine Cardiovascular Disease
DX: I10 Essential (primary) hypertension (principal); E78.5 Hyperlipidemia, unspecified
CPT/HCPCS: 93880

== ENCOUNTER → 2022-07-20 | Outpatient (CLI) | payer MEDICARE, OTHER | END | disposition home or self-care (01) | LOC: Rad HDHVI 12:53 | PROVIDERS: ATTEND Internal Medicine Cardiovascular Disease | DX: I08.3 Combined rheumatic disorders of mitral, aortic and tricuspid valves (principal); I10 Essential (primary) hypertension; E78.5 Hyperlipidemia, unspecified | CPT/HCPCS: 93306 ==

== ENCOUNTER → 2022-10-05 | Outpatient (CLI) | payer MEDICARE, OTHER ==
[~2022-10-05] MED LIST changes: +MONT5CHW12 PO; -MONT5CHW23 PO
== END | disposition home or self-care (01) ==
LOC: Rad HDHVI 09:57
PROVIDERS: ATTEND Internal Medicine Cardiovascular Disease
DX: I63.9 Cerebral infarction, unspecified (principal)
CPT/HCPCS: 70450

== ENCOUNTER 2022-10-25 06:37 | Day surgery (SDC) | payer MEDICARE, OTHER ==
[2022-10-19 11:58] LABS: Basophils # (auto) 0 10 ^3/uL (0-0.2); Basophils % (auto) 0.6 % (0.0-2.0); Eosinophils # (auto) 0.1 10 ^3/uL (0-0.8); Eosinophils % (auto) 1.5 % (0.0-7.0); Hematocrit 46.8 % (41.0-53.0); Hemoglobin 16.2 g/dL (13.5-17.5); Lymphocytes # (auto) 2.4 10 ^3/uL (0.4-5.4); Lymphocytes % (auto) 32.5 % (10.0-50.0); Mean Corpuscular Hemoglobin 31.4 pg (28.0-32.0); Mean Corpuscular Hgb Conc. 34.5 g/dL (32.0-36.0); Mean Corpuscular Volume 91.1 fL (80.0-100.0); Monocytes # (auto) 1.1 10 ^3/uL (0-1.3); Monocytes % (auto) 14.7 % (0.0-12.0); Neutrophils # (auto) 3.7 10 ^3/uL (1.6-8.6); Neutrophils % (auto) 50.7 % (37.0-80.0); Nucleated Red Blood Cells % 0.2 %; Red Blood Cells 5.14 10^6/uL (4.5-5.90); Red Cell Distribution Width 13.7 % (11.8-14.3); White Blood Cell 7.3 10^3/uL (4.4-10.8)
[2022-10-19 12:05] LABS: Urine Bacteria NONE SEEN /hpf (None Seen); Urine Blood Negative /uL (Negative); Urine Clarity Clear (Clear); Urine Color Colorless (Yellow); Urine Protein, UAD Negative (Negative); Urine Specific Gravity 1.009 (1.001-1.035); Urine Urobilinogen Normal (Negative); Urine WBC <1 /hpf (0 - 3)
[2022-10-19 12:26] LABS: INR 1.15 (0.9-1.15)
[2022-10-19 12:44] LABS: Albumin 4.1 g/dL (3.4-5.0); Calcium 9.5 mg/dL (8.5-10.1); Potassium 4.4 mmol/L (3.5-5.1)
[2022-10-19 12:48] LABS: BUN/Creatinine Ratio 15.8 (10.0-20.0); Bilirubin, Total 0.6 mg/dL (0.2-1.0); Total Protein 7.7 g/dL (6.4-8.2)
[~2022-10-25] VITALS: Ht 172.7 cm; Wt 88.9 kg
[~2022-10-25 06:37] MED LIST changes: +APOA20CA PO; +CETI10CA10 PO; -CHOL20007 PO; +CHOLTAB14 PO; -FURO1TAB33 PO; +LUTE20TA PO; -MISCCAP66 PO; -MULT-688 PO; -SACU1TAB PO; +TURM1TAB PO; -TURM500C3 PO; +ceFAZolin 1GM/50ML 100 ML IV ONE
[2022-10-25] MEDS ORDERED: BACITRACIN TOP OINT 1 UD PKG TOP ONE ×2 (07:00→07:01)
[2022-10-25] MEDS ORDERED: ROPIVACAINE 0.5% (5MG/ML) 20ML AMPULE IJ ONE (07:01)
[2022-10-25] MEDS ORDERED: fentaNYL CITRATE 100 MCG/2 ML VL ONE (07:42)
[2022-10-25] MEDS ORDERED: MIDAZOLAM HCL 2MG/2ML 2ml VIAL (1mg/ml) ONE (07:42)
[2022-10-25 08:26] VITALS: TEMP 98.1
[2022-10-25] MEDS ORDERED: ONDANSETRON HCL 4 MG/2 ML VIAL IV PRN (08:30)
[2022-10-25] MEDS ORDERED: LIDOCAINE 2% (LOCAL ANESTH.) PF 5ml SDV ONE (08:48)
[2022-10-25] MEDS ORDERED: PROPOFOL 10 MG/ML 20 ML IV ONE (08:48)
[2022-10-25 09:00] VITALS: BP 120/56; PULSE 76; RESP 11; O2SAT 97
== END 2022-10-25 09:05 | disposition home or self-care (01) ==
LOC: SUR 06:37
PROVIDERS: ATTEND Podiatrist Foot & Ankle Surgery
DX: M20.5X1 Other deformities of toe(s) (acquired), right foot (principal); M85.871 Other specified disorders of bone density and structure, right ankle and foot; M79.671 Pain in right foot; I10 Essential (primary) hypertension; I25.10 Atherosclerotic heart disease of native coronary artery without angina pectoris; I25.2 Old myocardial infarction; J45.909 Unspecified asthma, uncomplicated; Z79.899 Other long term (current) drug therapy; M1A.9XX1 Chronic gout, unspecified, with tophus (tophi)
CPT/HCPCS: 28285; 36415; 80053; 81001; 85025; 85610; 85730; 88305; 88311; J0690; J2001; J2250; J2704; J2795; J3010

== ENCOUNTER → 2023-04-10 | Outpatient (CLI) | payer MEDICARE, OTHER ==
[~2023-04-10] MED LIST changes: -ceFAZolin 1GM/50ML 100 ML IV ONE
== END | disposition home or self-care (01) ==
LOC: Rad HDHVI 09:47
PROVIDERS: ATTEND Internal Medicine Cardiovascular Disease
DX: I08.0 Rheumatic disorders of both mitral and aortic valves (principal); I11.9 Hypertensive heart disease without heart failure; R06.02 Shortness of breath
CPT/HCPCS: 93306

== ENCOUNTER → 2023-11-22 | Outpatient (CLI) | payer MEDICARE, OTHER ==
[~2023-11-22] MED LIST changes: +LUTE20CA PO; -LUTE20TA PO
== END | disposition home or self-care (01) ==
LOC: Rad HDHVI 12:51
PROVIDERS: ATTEND Internal Medicine Cardiovascular Disease
DX: I08.0 Rheumatic disorders of both mitral and aortic valves (principal); I10 Essential (primary) hypertension; I25.5 Ischemic cardiomyopathy
CPT/HCPCS: 93306

== ENCOUNTER → 2024-01-09 | Outpatient (CLI) | payer MEDICARE, OTHER ==
[~2024-01-09] MED LIST changes: +READI-CAT 2 (BARIUM SULF)(VANILLA SMOOTHIE) 450ML ONE
--- NOTE | 2024-01-09 11:31 | DVH ---
CT ABDOMEN AND PELVIS WITHOUT CONTRAST CLINICAL HISTORY: ABD PAIN TECHNIQUE: Multidetector CT of the abdomen was performed from lung bases to pubic symphysis. Imaging was performed without and with oral IV contrast. Axial, coronal and sagittal multiplanar reformats we re obtained from the axial data set by the technologist. Radiation optimization: All CT scans at this facility use at least one of these dose optimization charley hniques: automated exposure control mA and/or kV adjustment per patient size (includes targeted exam s where dose is matched to clinical indication) or iterative reconstruction. Radiation Dose Information: CT Dose: CTDI volume is 6.77 mGy. Dose-length product is 389.4 mGy*cm Comparison: [facility] on DOS: 12/27/21, [facility] on DOS: 05/27/21 FINDINGS: Evaluation of the abdominal viscera is limited without intravenous contrast. There are multiple bilateral renal cysts, the largest in the left upper pole measuring 6.5 cm. There is no evidence of nephrolithiasis or hydronephrosis. There is no evidence of a ureteral calculus or h ydroureter. There are few scattered calcified granulomas in the spleen. The liver, gallbladder, pancreas, adrenal glands, appear within normal limits. There is no gross evidence of abdominal lymphadenopathy. There is no free fluid or free air. The stomach is filled contrast and grossly appears unremarkable. The small and large bowel loops demo nstrate normal caliber. There are diverticula in the distal colon without evidence of acute divertic ulitis. The abdominal aorta and IVC appear within normal limits. The bladder appears unremarkable. There is mild prostatomegaly. There is no evidence of a pelvic mas s or lymphadenopathy. There is no free fluid collection. Lung bases are clear. There are calcified right hilar and mediastinal lymph nodes. There is no acute osseous abnormality. IMPRESSION: 1. There is no acute process in the abdomen and pelvis.. 2. Distal colon diverticulosis. 3. Mild prostatomegaly. 4. Multiple bilateral renal cysts measuring up to 6.5 cm. 5. Chronic granulomatous disease. HS:Y
== END | disposition home or self-care (01) ==
LOC: Rad HDHVI 08:47
PROVIDERS: ATTEND Internal Medicine Cardiovascular Disease
DX: N28.1 Cyst of kidney, acquired (principal); N40.0 Benign prostatic hyperplasia without lower urinary tract symptoms; K57.30 Diverticulosis of large intestine without perforation or abscess without bleeding; D73.89 Other diseases of spleen; D71 Functional disorders of polymorphonuclear neutrophils; R10.9 Unspecified abdominal pain
CPT/HCPCS: 74176

== ENCOUNTER → 2024-03-17 | Outpatient (CLI) | payer MEDICARE, OTHER ==
[~2024-03-17] VITALS: Ht 172.7 cm; Wt 79.8 kg
[~2024-03-17] MED LIST changes: -READI-CAT 2 (BARIUM SULF)(VANILLA SMOOTHIE) 450ML ONE
--- NOTE | 2024-03-19 13:46 | DVHSR ---
APPROVED REPORT Exam: Nuclear Stress Test Indication: CAD , Dyspnea Ht: 5 ft 8 in Wt: 176 lbs BSA: 1.94 m2 HR: 75 bpm BP: 152/97 mmHg BMI: 26.75 Rhythm: SR, LBBB, PVCs Medical History Medical History: HTN, Diabetes, SOB, Cardiomyopathy, Atrial Fibrillation, CHF, Stent, Pacemaker, Hype rcholesterolemia, SSS Medications: Jardiance, Ubiquinol, Turmeric, Toprol XL, Vit D3, Xarelto, Famotidine, NAC, Corlanor, M ultivitamin, Allopurinol, Metformin, Fish Oil, Singulair, Digoxin, Vit E, Preservision, Magnesium Allergies: No known drug allergies Stress Test Details Stress Test: Exercise stress testing was performed using a Michael protocol. HR Resting HR: 75 bpmMax Heart Rate (APMHR): 138.366685 bpm Max HR Achieved: 127 bpmTarget HR (85% APMHR): 117.728442 bpm % of APMHR: 92.03 Recovery HR: 79 bpm HR response to stress: Normal HR response to stress BP Resting BP: 152/97 mmHg Max BP: 176/100 mmHg Recovery BP: 168/102 mmHg BP response to stress: Resting hypertension- appropriate response. ECG Resting ECG: SR, LBBB Stress ECG: Sinus Tachycardia, LBBB Arrhythmia: VPC's, APC's Recovery ECG: Sinus Rhythm, LBBB Clinical Reason for Termination: Fatigue Stress Symptoms: None Exercise duration: 4 min 04 sec Exercise capacity: 4.6 METs Stress ECG Conclusion LESS THAN 10% LIKELIHOOD FOR STRESS INDUCE ISCHEMIA NON ISCHEMIC ECG RESPONSE NON ISCHEMIC CLINICAL RESPONSE EF 40% FIXED INFERIOR DEFECT FIXED SEPTAL DEFECTS FIXED APICAL DEFECT ISCHEMIC CM NM EXAM: Myocardial Perfusion REST/STRESS Imaging Protocol: Rest Tc-99m/Stress Tc-99m 1 day Resting Data Rest SPECT myocardial perfusion imaging was performed in supine position 30 minutes following the int ravenous injection of 10.77 mCi of Tc-99m Sestamibi. Time of rest injection: 0840 Time of rest imagin Administration Route: IV Administration Site: Right Hand Exercise Stress At peak stress, the patient was injected intravenously with 31.4 mCi of Tc-99m Sestamibi. Time of stress injection: 0938 Time of stress imagin Administration Route: IV Administration Site: Right Hand Heart Rate at time of stress injection: 120 bpm. Patient continued to exercise for 2 minute(s). Gated Stress SPECT was performed 15 minutes after stress injection. The images were gated to evaluate regional wall motion and calculate left ventricular ejection fracti on. Comments Cardiolite injection at 2 minutes, 12 seconds into test. Study Data Post stress, the left ventricular ejection was 42%.. Nuclear Conclusion LESS THAN 10% LIKELIHOOD FOR STRESS INDUCE ISCHEMIA NON ISCHEMIC ECG RESPONSE NON ISCHEMIC CLINICAL RESPONSE EF 40% FIXED INFERIOR DEFECT FIXED SEPTAL DEFECTS FIXED APICAL DEFECT ISCHEMIC CM
== END | disposition home or self-care (01) ==
LOC: Rad HDHVI 08:25
PROVIDERS: ATTEND Internal Medicine Cardiovascular Disease
DX: I11.0 Hypertensive heart disease with heart failure (principal); E11.21 Type 2 diabetes mellitus with diabetic nephropathy; I50.23 Acute on chronic systolic (congestive) heart failure; I49.5 Sick sinus syndrome; I25.5 Ischemic cardiomyopathy; E78.00 Pure hypercholesterolemia, unspecified; I25.10 Atherosclerotic heart disease of native coronary artery without angina pectoris; I25.2 Old myocardial infarction; R06.02 Shortness of breath; R06.00 Dyspnea, unspecified; R53.83 Other fatigue; Z95.820 Peripheral vascular angioplasty status with implants and grafts
CPT/HCPCS: 78452; 93017; 96374; A9500

== ENCOUNTER → 2024-04-30 | Outpatient (CLI) | payer MEDICARE, OTHER | END | disposition home or self-care (01) | LOC: Rad HDHVI 14:57 | PROVIDERS: ATTEND Internal Medicine Cardiovascular Disease | DX: I10 Essential (primary) hypertension (principal); I48.20 Chronic atrial fibrillation, unspecified | CPT/HCPCS: 93880 ==

== ENCOUNTER → 2024-05-26 | Outpatient (CLI) | payer MEDICARE, OTHER ==
[~2024-05-26] MED LIST changes: +ALLO300T2 PO; +CHOL20007 PO; +DIGECAP3 OR; +DIGO0.12 PO; +EMPA1TAB PO; +LACTCAP35 PO; +MAGN500T17 PO; +MULT-688 PO; +OMEGCAP2 PO; +VITA-89 PO; +[UNRECOGNIZED DRUG - CODE] PO
[2024-05-26 09:00] VITALS: BP 178/101; PULSE 76; RESP 20; O2SAT 99
[2024-05-26 09:27] VITALS: BP 181/96; PULSE 73; RESP 18; O2SAT 99
--- NOTE | 2024-05-26 12:38 | DVH ---
XY CHEST TWO VIEWS ROUTINE CLINICAL HISTORY: PRE OP COMPARISON: CXR2 on DOS: 03/07/22, CHEST TWO VIEWS ROUTINE on DOS: 03/07/22, CXR2 on DOS: 01/20/22, CHEST TWO VIEWS ROUTINE on DOS: 01/20/22 TECHNIQUE: Frontal and lateral view of the chest was obtained FINDINGS: Lines and Tubes: Dual lead left-sided pacemaker. Lungs: No focal consolidation. Pleura: No effusion. No pneumothorax. Cardiomediastinal contours: Unremarkable Bones: No acute osseous abnormality. IMPRESSION: No acute cardiopulmonary disease.
== END | disposition home or self-care (01) ==
LOC: Rad HDHVI 08:55
PROVIDERS: ATTEND Internal Medicine Cardiovascular Disease
DX: Z01.818 Encounter for other preprocedural examination (principal); R94.31 Abnormal electrocardiogram [ECG] [EKG]; R06.02 Shortness of breath; R42 Dizziness and giddiness; I10 Essential (primary) hypertension
CPT/HCPCS: 71046; 93005; G0463

== ENCOUNTER 2024-05-29 06:30 | Day surgery (SDC) | payer MEDICARE, OTHER ==
[2024-05-26 12:11] LABS: Basophils # (auto) 0 10 ^3/uL (0-0.2); Basophils % (auto) 0.5 % (0.0-2.0); Eosinophils # (auto) 0.1 10 ^3/uL (0-0.8); Eosinophils % (auto) 1.7 % (0.0-7.0); Hematocrit 49.3 % (41.0-53.0); Hemoglobin 17.3 g/dL (13.5-17.5); Lymphocytes # (auto) 1.5 10 ^3/uL (0.4-5.4); Mean Corpuscular Hemoglobin 33.5 pg (28.0-32.0); Mean Corpuscular Volume 95.5 fL (80.0-100.0); Monocytes # (auto) 0.7 10 ^3/uL (0-1.3); Neutrophils # (auto) 4.7 10 ^3/uL (1.6-8.6); Neutrophils % (auto) 66.8 % (37.0-80.0); Platelet Count (auto) 151 10^3/uL (140-450); Red Blood Cells 5.16 10^6/uL (4.5-5.90); Red Cell Distribution Width 14.3 % (11.8-14.3); White Blood Cell 7.1 10^3/uL (4.4-10.8)
[2024-05-26 12:23] LABS: INR 1.08 (0.9-1.15); Partial Thromboplastin Time 36.3 SEC (24.5-34.5); Prothrombin Time 11.4 sec (9.3-11.8)
[2024-05-26 13:20] LABS: Chloride 101 mmol/L (98-107); Potassium 4.8 mmol/L (3.5-5.1); Sodium 137 mmol/L (136-145)
[2024-05-26 13:21] LABS: Anion Gap 7 (5-15); Carbon Dioxide 29 mmol/L (20-31)
[2024-05-26 13:22] LABS: Calcium 10.2 mg/dL (8.7-10.4)
[2024-05-26 13:27] LABS: Blood Urea Nitrogen 15 mg/dL (9-23); Glucose 133 mg/dL (74-106)
[~2024-05-29] VITALS: Ht 172.7 cm; Wt 124.3 kg
[2024-05-29] VITALS (8 sets, daily range): BP systolic 122–139; BP diastolic 66–90; PULSE 72–74; RESP 12–17; TEMP 97.8; O2SAT 91–96
[~2024-05-29 06:30] MED LIST changes: -ACET1CAP18 PO; -APOA20CA PO; -CETI10CA10 PO; -CHOLTAB14 PO; -LUTE20CA PO; -pravastatin PO
[2024-05-29] MEDS ORDERED: HEPARIN IN NS 1000Units/500mL 0 ML ONE (07:10)
[2024-05-29] MEDS ORDERED: IOHEXOL 350 MG/ML 100ML IJ ONE ×2 (07:10→08:36)
[2024-05-29] MEDS ORDERED: IODIXANOL 320MG/ML 100ML BTL IV ONE (07:16)
[2024-05-29] MEDS ORDERED: HEPARIN IN NS 1000Units/500mL 1,500 ML ONE (07:17)
[2024-05-29] MEDS ORDERED: ANGIOMAX 250 MG VIAL IV ONE (08:10)
[2024-05-29] MEDS ORDERED: fentaNYL CITRATE 100 MCG/2 ML VL ONE (08:11)
[2024-05-29] MEDS ORDERED: SODIUM CHL 0.9% 50 ML ONE (08:11)
[2024-05-29] MEDS ORDERED: LIDOCAINE 2%HCL (LOCAL ANESTH.) INJ 20ML MDV ONE (08:11)
[2024-05-29] MEDS ORDERED: MIDAZOLAM HCL 2MG/2ML 2ml VIAL (1mg/ml) ONE (08:11)
[2024-05-29] MEDS ORDERED: CLOPIDOGREL BISULFATE 75 MG TAB ONE (08:40)
[2024-05-29] MEDS ORDERED: ASPirin 81 mg TAB ONE (08:40)
--- NOTE | 2024-05-29 09:16 | DVHHP ---
ADMIT DATE: 05/29/2024 HISTORY OF PRESENT ILLNESS: The patient is an 83-year-old with history of organic heart disease. A. Coronary artery disease. B. Myocardial infarction C. Angioplasty with stent placement of the right coronary artery, some 10 years ago. Presents with signs and symptom complex of progressive shortness of breath, chest pain. Stress Cardiolite failed to demonstrate any significant ischemia. However, ejection fraction continues to decline. Because of above presentation, it was felt that the patient should undergo coronary angiography to define coronary anatomy. PERTINENT MEDICAL HISTORY: Significant for: * Hypertension. * Hyperlipidemia. * Diabetes with diabetic neuropathy, vasculopathy, nephropathy. No history of TIA as well. Denies any seizure disorder. No movement disorder. History of osteoarthritis as well. Denies any GI symptomatology such as irritable bowel syndrome or inflammatory bowel disease. The patient denies any syncopal episode at this time. He had dizziness in the past. He has a permanent pacemaker. Underlying rhythm is atrial fibrillation. PHYSICAL EXAMINATION: VITAL SIGNS: Blood pressure is 124/80, pulse of 70 and regular, O2 saturation 94% on room air. HEENT: Pupils are reactive. Funduscopic exam shows no AV nicking, no exudates, no papilledema. Sclerae are anicteric. Extraocular muscles are intact. Oral mucosa moist. Posterior pharynx without any exudates. No cervical adenopathy, no supraclavicular adenopathy. NECK: No JVD appreciated. Carotid pulses are 2+ symmetrical, normal upstroke and contour. PULMONARY: Clear to auscultation. CARDIOVASCULAR: Regular rate without S3, without S4. PMI is diffuse, laterally and inferiorly displaced. ABDOMEN: Soft, nontender, normal bowel sounds. Stool guaiac negative. No epigastric tenderness, no suprapubic tenderness, no CVA tenderness. NEUROLOGIC: The patient is intact. DTRs are 2+ symmetrical. Cranial nerves 2-12 within normal limits. EKG shows a ventricular paced rhythm. ASSESSMENT AND PLAN: Thus, the patient with an ischemic cardiomyopathy, previous myocardial infarction, previous angioplasty with stent placement, now to undergo coronary angiography. Further recommendations after the angiogram. Raimundo Griffith MD SA/KAYDEN TID: [id number] RECEIPT: [id number]
--- NOTE | 2024-05-29 09:17 | DVHDS ---
DATE OF DISCHARGE: 05/29/2024 DISCHARGE DIAGNOSES: The patient underwent successful angioplasty with stent placement of the circumflex artery. Clinically, the patient is stable at the time of discharge, the patient with ischemic cardiomyopathy, EF around 35%, with apical aneurysm noted. At this time, continue anticoagulation. Plavix will be initiated 75 mg p.o. daily and the patient should be maintained on Xarelto at a lower dose because of the combination therapy. He has underlying atrial fibrillation, sick sinus syndrome, status post permanent pacemaker implantation. The patient is V-paced at this time. Follow up with me in 1 week. Stable at the time of discharge. DISPOSITION: Home. ACTIVITY: As instructed. DIET: Will be 2 gram sodium diet. Raimundo Griffith MD SA/KAYDEN TID: [id number] RECEIPT: [id number]
--- NOTE | 2024-05-29 09:27 | DVHOP ---
DATE OF SURGERY: 05/29/2024 PROCEDURES PERFORMED: * Left heart catheterization. * Angioplasty with stent placement of the circumflex artery with a 2.75 x 15 mm [place] Sheridan stent. * Thrombectomy with shockwave treatment with a 2.5 x 12 mm thrombectomy shockwave balloon. * FFR of the circumflex artery. * Left ventriculogram. * Right iliac angiography. DESCRIPTION OF PROCEDURE: The patient was prepped and draped in a sterile condition. 1% Xylocaine used to anesthetize the right groin. Using a Cook needle, the right femoral artery was engaged with Seldinger technique, a 6-Nigerian sheath into the right femoral artery. Using a 6-Nigerian JL4 catheter and 6-Nigerian JR4 catheter, selective left and right coronary angiographies were performed. Then, using a 6-Nigerian pigtail catheter, ventriculogram was done. The 6-Nigerian diagnostic system was exchanged for a 6-Nigerian interventional system. Using a 6-Nigerian XB 3.5 guide catheter, left main was cannulated. A ChoICE PT Extra Support wire was used to cross the lesion. It was then thrombectomized using a 2.5 x 12 mm shockwave thrombectomy balloon. FFR was performed pre and post-intervention. It gave a result of 0.77. Therefore, we proceeded with the angioplasty. A 2.75 x 15 mm [place] Sheridan stent was then deployed across the lesion at 14 atmospheres. There were no complications. The patient tolerated the procedure well. RESULTS: * Left main calcified, no flow restrictive lesion. * Left anterior descending artery, moderate diffuse disease without any flow restrictive lesion. * Circumflex in the proximal segment had an 80% narrowing with an FFR of 0.77. Post-angioplasty with stent placement with a 2.75 x 15 mm [place] Sheridan stent with less than 10% residual stenosis. * Right coronary artery, previous site of angioplasty with stent placement, moderate diffuse disease. No flow restrictive lesion. It is a large, dominant vessel. Left ventriculogram shows an ejection-fraction of 35%. The patient's underlying rhythm is atrial fibrillation, with apical aneurysm with an EF around 35% as stated. LVEDP of 8 mmHg, with no gradient across the aortic valve. CONCLUSION: The patient's left main is calcified, no flow restrictive lesion. Left anterior descending artery with moderate diffuse disease; however, no discrete lesions noted. Circumflex had an 80% calcified lesion, status post thrombectomy with shockwave and stent placement with a 2.75 x 15 mm [place] Sheridan stent, with less than 10% residual stenosis and FFR of 0.77, post-angioplasty was less than 0.10. Right coronary artery is a large, dominant vessel. Previous site of angioplasty was patent with moderate diffuse disease without any flow restrictive lesion. It is a large caliber vessel, more than 4.5 mm in diameter. Ejection-fraction is 35% with apical aneurysm. LVEDP of 8 mmHg with no gradient across the aortic valve. Raimundo Griffith MD SA/CLARIBEL TID: [id number] RECEIPT: [id number]
== END 2024-05-29 11:22 | disposition home or self-care (01) ==
LOC: CATH 06:30
PROVIDERS: ATTEND Internal Medicine Cardiovascular Disease
DX: I25.10 Atherosclerotic heart disease of native coronary artery without angina pectoris (principal); I25.84 Coronary atherosclerosis due to calcified coronary lesion; I25.5 Ischemic cardiomyopathy; I25.2 Old myocardial infarction; I48.91 Unspecified atrial fibrillation; I10 Essential (primary) hypertension; E11.40 Type 2 diabetes mellitus with diabetic neuropathy, unspecified; E78.5 Hyperlipidemia, unspecified; F41.9 Anxiety disorder, unspecified; Z79.899 Other long term (current) drug therapy; Z95.0 Presence of cardiac pacemaker; Z95.5 Presence of coronary angioplasty implant and graft; Z98.890 Other specified postprocedural states; Z80.9 Family history of malignant neoplasm, unspecified; Z81.8 Family history of other mental and behavioral disorders
CPT/HCPCS: 36415; 80048; 85025; 85610; 85730; 92972; 92973; 93458; C1760; C1761; C1769; C1874; C1887; C1894; C9600; J0583; J1644; J2250; J3010; Q9967; 99152; 99153

== ENCOUNTER → 2024-07-01 | Outpatient (CLI) | payer MEDICARE, OTHER ==
[~2024-07-01] VITALS: Ht 172.7 cm; Wt 76.7 kg
== END | disposition home or self-care (01) ==
LOC: Rad HDHVI 14:01
PROVIDERS: ATTEND Internal Medicine Cardiovascular Disease
DX: I11.0 Hypertensive heart disease with heart failure (principal); I50.23 Acute on chronic systolic (congestive) heart failure; E11.9 Type 2 diabetes mellitus without complications; I49.5 Sick sinus syndrome; I48.20 Chronic atrial fibrillation, unspecified; I25.10 Atherosclerotic heart disease of native coronary artery without angina pectoris; I25.5 Ischemic cardiomyopathy; I25.2 Old myocardial infarction; E78.00 Pure hypercholesterolemia, unspecified; R06.02 Shortness of breath; R07.89 Other chest pain; R42 Dizziness and giddiness; Z95.0 Presence of cardiac pacemaker
CPT/HCPCS: 78452; 93017; A9500; 96374

== ENCOUNTER → 2024-11-13 | Outpatient (CLI) | payer MEDICARE, OTHER | END | disposition home or self-care (01) | LOC: Rad HDHVI 14:47 | PROVIDERS: ATTEND Internal Medicine Cardiovascular Disease | DX: I11.0 Hypertensive heart disease with heart failure (principal); I50.9 Heart failure, unspecified; G45.9 Transient cerebral ischemic attack, unspecified | CPT/HCPCS: 93306 ==

== ENCOUNTER 2024-11-26 10:02 | Outpatient (CLI) | payer MEDICARE, OTHER | END 2024-11-26 17:00 | disposition home or self-care (01) | LOC: Rad HDHVI 10:02 | PROVIDERS: ATTEND Internal Medicine Cardiovascular Disease | DX: I11.0 Hypertensive heart disease with heart failure (principal); I50.23 Acute on chronic systolic (congestive) heart failure | CPT/HCPCS: 93880 ==

== ENCOUNTER 2024-12-17 09:58 | Emergency (ER) | payer MEDICARE, OTHER ==
[~2024-12-17] VITALS: Ht 172.7 cm; Wt 74.5 kg
--- NOTE | 2024-12-17 11:02 | ED.PDOC ---
Musculoskeletal HPI Comments A 84 YEAR OLD MALE PRESENTS TO THE ED WITH COMPLAINT OF HIP PAIN. PATIENT REPORTS THAT WHEN GETTING OUT OF HIS CAR TODAY, HE FELT SUDDEN RIGHT SIDED HIP PAIN THAT RADIATED DOWN HIS RIGHT LEG. PATIENT RELAYS THAT HE HAS CHRONIC BACK PAIN DUE TO DDD OF LOWER BACK. PATIENT DENIES FALL, INJURY, NUMBNESS, WEAKNESS, TINGLING, CHEST PAIN, ABDOMINAL PAIN, NAUSEA, VOMITING, HEADACHE, OR OTHER COMPLAINTS. NO OTHER SYMPTOMS OR MODIFYING FACTORS AT THIS TIME. PATIENT IS ALERT, ORIENTED X 4, AND HAS STEADY GAIT. Chief Complaint: Lower Extremity Time Seen by MD: 10:53 Primary Care Provider: BLESSING/ALEXADNRA Reviewed Notes: Nurses Notes, Medications, Allergies Allergies: Coded Allergies: NO KNOWN ALLERGIES (Unverified , 05/26/24) Home Meds Active Scripts Tramadol HCl (Tramadol HCl) 50 Mg Tab, 50 MG PO BID, #20 TAB Prov:CAROL DELGADO 12/17/24 Reported Medications Magnesium Oxide (Magnesium) 500 Mg Tab, 500 MG PO QPM for SUPPLEMENT, TAB 05/26/24 Franklin-3 Fatty Acids (Fish Oil) Cap, 14 MG PO QPM for SUPPLEMENT, CAP 05/26/24 Lactobacillus (PROBIOTIC) Cap, 106 IU PO DAILY for SUPPLEMENT, CAP 05/26/24 Empagliflozin (Jardiance) 10 Mg Tab, 10 MG PO DAILY for DIABETES, TAB 05/26/24 Digoxin (Digoxin) 125 Mcg Tab, 125 MCG PO DAILY for ARRHYTHMIA, TAB 05/26/24 Allopurinol (Allopurinol) 300 Mg Tab, 300 MG PO DAILY for GOUT, MG 05/26/24 Multiple Vitamins W/ Minerals (PRESERVISION AREDS 2) Areds 2 Cap, 1 2 PO BID for EYE HEALTH, CAP 05/26/24 Tocopheryl Acetate, Dl-Alpha (Vitamin E) 180 Mg Cap, 180 MG PO DAILY, CAP 05/26/24 Digestive Enzymes (Enzyme Digest) Cap, 1 OR QPM for supplement, CAP 05/26/24 Cholecalciferol (VITAMIN D3) 2,000 Unit Tab, 1 TAB PO DAILY for supplement, #30 TAB 5 Refills 05/26/24 Acetylcysteine (Nac) 600 Mg Cap, 600 MG PO QPM for Antioxidant supplement, CAP 05/26/24 Curcuma Longa (Turmeric) Extra (Turmeric) 500 Mg Tab, 1000 MG PO DAILY, TAB 10/20/22 Ascorbic Acid (VITAMIN C TABLET) 500 Mg Tb, 2 TAB PO DAILY for SUPPLEMENT, #30 TAB 3 Refills 01/20/22 Zinc Gluconate (Zinc) 50 Mg Tab, 50 MG PO DAILY for SUPPLEMENT, TAB 01/20/22 Ivabradine Hydrochloride (Corlanor) 5 Mg Tab, 5 MG PO QPM for HF, TAB 01/20/22 Famotidine (PEPCID TABLET) 20 Mg Tb, 2 TAB PO QPM for GERD, #60 TAB 5 Refills 01/20/22 Rivaroxaban (XARELTO) 10 Mg Tab, 1 TAB PO DAILY for STOP ON 05/28/24, #10 TAB 05/27/21 Montelukast Sodium (Singulair) 5 Mg Chw, 10 MG PO HS, TAB.CHEW 05/27/21 Ubiquinol (UBIQUINOL) 100 Mg Cap, 100 MG PO DAILY for SUPPLEMENT, CAP 11/20/17 Multiple Vitamin (Multivitamins) Cap, 1 CAP PO DAILY, #30 CAP 3 Refills 11/20/17 Metoprolol Succinate (Toprol Xl) 100 Mg Tab, 100 MG PO TID for Takes 100 am,100 noon, 50 pm, TAB ONLY TAKE TOPROL XL 50MG DAILY UNTIL FOLLOW UP APPT ON 03/20/22 DUE TO HYPOTENSION 11/20/17 Information Source: Patient, Emergency Med Personnel, Spouse Mode of Arrival: EMS Location: Right, Bilateral Extremity Location: Back, Hip Timing: Hours Prehospital treatment: None Severity: Moderate Able to Move Extremity: Yes Bear Weight: Fully Pain: Moderate Hand Dominance: Right Mechanism: Spontaneous Circumstances: Spontaneous Onset of Symptoms: Spontaneous Symptoms: Pain DVT Risk Factors: NONE Last Tetanus: UTD, Unknown Associated signs and symptoms: Back pain, Hip pain Past Medical History PAST MEDICAL HISTORY: AFIB, Angina, DM, High Lipids, HTN Past Medical History (Other): CHRONIC BACK PAIN, DDD OF LOW BACK Surgical History: Hernia Repair, Pacemaker, PTCA Family History Family History: Reviewed,noncontributory to illness, Family hx of heart franca Social History Smoker: Non-Smoker Alcohol: Occasionally Drugs: Denies Drug Use Lives In: Home Constitutional: denies: chills, diaphoresis, fatigue, fever, malaise, sweats, weakness, others EENTM: denies: blurred vision, double vision, ear bleeding, ear discharge, ear drainage, ear pain, ear ringing, eye pain, eye redness, hearing loss, mouth pain, mouth swelling, nasal discharge, nose bleeding, nose congestion, nose pain, photophobia, tearing, throat pain, throat swelling, voice changes, others Respiratory: denies: cough, hemoptysis, orthopnea, SOB at rest, shortness of breath, SOB with excertion, stridor, wheezing, others Cardiovascular: denies: chest pain, dizzy spells, diaphoresis, Dyspnea on exertion, edema, irregular heart beat, left arm pain, lightheadedness, palpitations, PND, syncope, others Gastrointestinal: denies: abdomen distended, abdominal pain, blood streaked bowels, constipated, diarrhea, dysphagia, difficulty swallowing, hematemesis, melena, nausea, poor appetite, poor fluid intake, rectal bleeding, rectal pain, vomiting, others Genitourinary: denies: burning, dysuria, flank pain, frequency, hematuria, incontinence, penile discharge, penile sore, pain, testicle pain, testicle swelling, urgency, others Neurological: denies: dizziness, fainting, headache, left sided numbness, left sided weakness, numbness, paresthesia, pre-existing deficit, right sided numbness, right sided weakness, seizure, speech problems, tingling, tremors, weakness, others Musculoskeletal: reports: joint pain, muscle pain, others (RT HIP PAIN); denies: back pain, gout, joint swelling, muscle stiffness, neck pain Integumetry: denies: bruises, change in color, change in hair/nails, dryness, laceration, lesions, lumps, rash, wounds, others Allergic/Immunocompromised: denies: Difficulty Healing, Frequent Infections, Hives, Itching, others Hematologic/Lymphatic: denies: anemia, blood clots, easy bleeding, easy bruising, swollen glands, others Endocrine: denies: excessive hunger, excessive sweating, excessive thirst, excessive urination, flushing, intolerance to cold, intolerance to heat, unexplained weight gain, unexplained weight loss, others Psychiatric: denies: anxiety, bipolar disorder, depression, hopeless, panic disorder, schizophrenia, sleepless, suicidal, others All Other Systems: Reviewed and Negative Physical Exam General Appearance: No Apparent Distress, Normal HEENT: Normal ENT Inspection, PERRL/EOMI, Pharynx Normal Neck: Full Range of Motion, Non-Tender, Normal, Normal Inspection Respiratory: Chest Non-Tender, Lungs Clear, No Accessory Muscle Use, No Respiratory Distress, Normal Breath Sounds Cardiovascular: No Edema, No JVD, No Murmur, No Gallop, Normal Peripheral Pulses, Regular Rate/Rhythm Breast Exam: Deferred Gastrointestinal: No Organomegaly, Non Tender, No Pulsatile Mass, Normal Bowel Sounds, Soft Genitalia: Deferred Pelvic: Deferred Rectal: Deferred Extremities: Decreased range of motion, No calf tenderness, Normal capillary refill, Normal inspection, No pedal edema, Tender (ON RIGHT ANTERIOR AND POSTERIOR HIP, NO BONY TENDERNESS, SWELLING AND DEFORMITY. ), Other (NO REDNESS AND SWELLING AND DVT SIGNS OF RIGHT LOWER EXTREMITY. ) Musculoskeletal : Apperance: Normal Neurologic: Alert, director of development and marketing II-XII nml as Tested, No Motor Deficits, Normal Affect, Normal Mood, No Sensory Deficits Cerebellar Function: Normal Reflexes: Normal Skin: Dry, Normal Color, Warm Peripheral Pulses: 2+ carotid (R), 2+ carotid (L), 2+ dorsalis pedis (R), 2+ dorsalis pedis (L) Lymphatic: No Adenopathy Was a procedure done? Was a procedure done?: No Differential Diagnosis EXT Differential Diagnosis: Fracture, Sprain, Strain, Bursitis X-Ray, Labs, Meds, VS Vital Signs Date Time Temp Pulse Resp B/P (MAP) Pulse Ox O2 Delivery O2 Flow Rate FiO2 12/17/24 11:26 71 18 97 Room Air 12/17/24 11:26 98.1 71 18 132/84 (100) 97 98.1 12/17/24 10:09 97.0 80 18 180/102 98 97.0 Current Medications Medications (Trade) Dose Ordered Sig/Tashi Route Start Time Stop Time Status Last Admin Acetaminophen/ Hydrocodone Bitart ([place] 5/325MG Tab) 1 tab ONCE ONCE PO 12/17/24 11:15 12/17/24 11:16 DC 12/17/24 11:25 PATIENT: KAYLI LI DACCT: [id number]: [id number] : 1940 LOC: ER ROOM / BED: / AGE / SEX: 84 / M ADM STATUS: REG ER SERVICE 1039 ORDERING PHYSICIAN: CAROL DELGADO PROCEDURE(s): RHIP - R HIP COMPLETE XRAY REASON: PAIN, NO INJURY ORDER NUMBER(s): [id number], ACCESSION NUMBER(s): [id number] CLINICAL INDICATION: PAIN, NO INJURY TECHNIQUE: XY R HIP COMPLETE XRAY Comparison: None FINDINGS/IMPRESSION: : There is no evidence of acute fracture or dislocation. Soft tissues are unremarkable. Moderate degenerative changes. ATED BY: JAMEL COLE MD DICTATED DATE/TIME: 12/17/241124 SIGNED BY: JAMEL COLE MD SIGNED DATE/TIME: 12/17/241124 CC: PATIENT: KAYLI LI ACCT: [id number] UNIT: [id number] : 1940 LOC: ER ROOM / BED: / AGE / SEX: 84 / M ADM STATUS: REG ER SERVICE 1039 ORDERING PHYSICIAN: CAROL DELGADO PROCEDURE(s): LUMB2 - LUMBAR SPINE 3 VIEW REASON: LOW BACK PAIN TO RIGHT THIGH ORDER NUMBER(s): [id number], ACCESSION NUMBER(s): [id number] EXAM: XY LUMBAR SPINE 3 VIEW HISTORY: LOW BACK PAIN TO RIGHT THIGH COMPARISON: [id number] on DOS: 05/27/21 TECHNIQUE: AP and lateral views of the lumbar spine and spot lateral of the lumbosacral junction were performed. FINDINGS: The lumbar lordosis is maintained. There is mild levoconvex curvature. There is no acute fracture or traumatic malignment.There is Severe disc height loss at L2-L3 .There is mild disc height loss at L1-L2. Ventral osteophytes are evident at L1-L2.There is facet arthropathy in the lower lumbar spine. Paraspinal soft tissues are unremarkeable. Aorto iliac vascular calcifications are noted. IMPRESSION: 1. No acute fracture or traumatic alignment. 2. Severe discogenic disease at L2-L3 ATED BY: ANI GEE MD DICTATED DATE/TIME: 12/17/241127 SIGNED BY: ANI GEE MD SIGNED DATE/TIME: 12/17/24 1128 CC: X-Ray, Labs, Meds, VS Comment EXTERNAL MEDICAL RECORDS REVIEWED: [NONE] INDEPENDENT HISTORIANS: [NONE] SOCIAL DETERMINANTS OF HEALTH: [NONE] LABS ORDERED: NONE REVIEWED AND INTERPRETED RESULTS: RT HIP XR, L-SPINE XR IMAGING ORDERED: RT HIP XR, L-SPINE XR TREATMENTS ORDERED: NORCO 5/325 PO PROCEDURES PERFORMED: NONE CRITICAL CARE TIME: NONE I HAVE DISCUSSED THE PATIENT WITH THE ATTENDING PHYSICIAN, DR. SOARES, HE AGREES WITH THE PATIENT'S PLAN OF CARE AND DISPOSITION. BASED ON HISTORY OF PRESENT ILLNESS, AND PHYSICAL EXAM, PATIENT WILL BE DISCHARGED HOME. DISCUSSED PLAN FOR DISCHARGE HOME WITH RX []. MEDICATION WARNINGS GIVEN. SHARED DECISION MAKING: DISCUSSED WITH PATIENT THAT THEIR WORKUP WAS NORMAL. PATIENT INSTRUCTED TO FOLLOW UP WITH PRIMARY CARE PROVIDER IN 1-2 DAYS FOR RE- EVALUATION OF SYMPTOMS. PATIENT VERBALIZES UNDERSTANDING TO RETURN TO ED FOR NEW OR WORSENING SYMPTOMS OR IF FOLLOW UP WITH PCP CANNOT BE OBTAINED. PATIENT FEELS COMFORTABLE GOING HOME AT THIS TIME. ALL QUESTIONS ADDRESSED AT TIME OF DISCHARGE. Time of 1ST Reevaluation: 11:58 Reevaluation 1ST: Improved Patient Education/Counseling: Diagnosis, Treatment, Need For Follow Up Family Education/Counseling: Diagnosis, Treatment, Need For Follow Up Medical Screening: No EMC Exist At This Time Departure 1 Departure Time of Disposition: 12:08 Impression: Primary Impression: DDD (degenerative disc disease), lumbosacral Qualified Codes: M51.371 - Other intervertebral disc degeneration, lumbosacral region with lower extremity pain only Additional Impression: Degenerative joint disease of right hip Qualified Codes: M16.11 - Unilateral primary osteoarthritis, right hip Disposition: 01 HOME / SELF CARE / HOMELESS Condition: Stable Additional Instructions: FOLLOW-UP WITH PCP IN 1 TO 2 DAYS. TAKE MEDICATIONS PRESCRIBED. RETURN TO ED FOR ANY NEW OR WORSENING SYMPTOMS. e-Prescriptions Tramadol HCl (Tramadol HCl) 50 Mg Tab 50 MG PO BID, #20 TAB Prov: CAROL DELGADO 12/17/24 Discharged With: Self, Spouse Critical Care Note Critical Care Time?: No Stability Stability form required: No Heart Score Heart Score: Heart Score Response (Comments) Value History N/A 0 EKG N/A 0 Age N/A 0 Risk Factors N/A 0 Troponin N/A 0 Total 0 I personally scribed for CAROL DELGADO ([email or web address]) on 12/17/24 at 11:01. Electronically submitted by Tao Collier ([email or web address]). CAROL DELGADO Dec 17, 2024 11:01
[2024-12-17] MEDS: HYDROcodone-ACET 5/325MG TAB PO ONE (11:25)
[2024-12-17 11:26] VITALS: BP 132/84; PULSE 71; RESP 18; TEMP 98.1; O2SAT 97
--- NOTE | 2024-12-17 11:27 | DVH ---
CLINICAL INDICATION: PAIN, NO INJURY TECHNIQUE: XY R HIP COMPLETE XRAY Comparison: None FINDINGS/IMPRESSION: : There is no evidence of acute fracture or dislocation. Soft tissues are unremarkable. Moderate degenerative changes.
--- NOTE | 2024-12-17 11:30 | DVH ---
EXAM: XY LUMBAR SPINE 3 VIEW HISTORY: LOW BACK PAIN TO RIGHT THIGH COMPARISON: [id number] on DOS: 05/27/21 TECHNIQUE: AP and lateral views of the lumbar spine and spot lateral of the lumbosacral junction were performed. FINDINGS: The lumbar lordosis is maintained. There is mild levoconvex curvature. There is no acute fracture or traumatic malignment.There is Severe disc height loss at L2-L3 .There is mild disc height loss at L1 -L2. Ventral osteophytes are evident at L1-L2.There is facet arthropathy in the lower lumbar spine. Paraspinal soft tissues are unremarkeable. Aorto iliac vascular calcifications are noted. IMPRESSION: 1. No acute fracture or traumatic alignment. 2. Severe discogenic disease at L2-L3
[2024-12-17] MEDS ORDERED: TRAM-626 PO (12:06)
== END 2024-12-17 12:12 | disposition home or self-care (01) ==
LOC: EDBD 09:58 → ER 10:02
DX: M51.371 Other intervertebral disc degeneration, lumbosacral region with lower extremity pain only (principal); M16.11 Unilateral primary osteoarthritis, right hip; I10 Essential (primary) hypertension; E11.9 Type 2 diabetes mellitus without complications; I48.91 Unspecified atrial fibrillation; Z79.84 Long term (current) use of oral hypoglycemic drugs; Z79.899 Other long term (current) drug therapy; Z95.0 Presence of cardiac pacemaker; Z98.890 Other specified postprocedural states
CPT/HCPCS: 72100; 73502

== ENCOUNTER 2025-01-12 09:57 | Outpatient (CLI) | payer MEDICARE, OTHER ==
[~2025-01-12 09:57] MED LIST changes: +TRAM-626 PO
[2025-01-12 10:10] VITALS: BP 156/82; PULSE 78; RESP 16; O2SAT 100
[2025-01-12 10:27] VITALS: BP 144/82; PULSE 73; RESP 16; O2SAT 100
[2025-01-12] MEDS ORDERED: CLOP75TA28 PO (12:00)
[2025-01-12] MEDS ORDERED: PRAV20TA3 PO (12:01)
[2025-01-12] MEDS ORDERED: ESOM40CA39 PO (16:11)
[2025-01-12] MEDS ORDERED: EZET-10 PO (16:11)
[2025-01-12] MEDS ORDERED: IVAB1.7T PO (16:11)
[2025-01-12] MEDS ORDERED: TAMS-35 PO (16:15)
== END 2025-01-12 17:00 | disposition home or self-care (01) ==
LOC: CHF HDHVI 09:57
PROVIDERS: ATTEND Internal Medicine Cardiovascular Disease
DX: Z01.810 Encounter for preprocedural cardiovascular examination (principal); R94.31 Abnormal electrocardiogram [ECG] [EKG]; R06.02 Shortness of breath; I25.10 Atherosclerotic heart disease of native coronary artery without angina pectoris
CPT/HCPCS: 93005; G0463

== ENCOUNTER 2025-01-15 06:55 | Day surgery (SDC) | payer MEDICARE, OTHER ==
[2025-01-13 12:10] LABS: INR 1.07 (0.9-1.15); Partial Thromboplastin Time 29.4 SEC (24.5-34.5); Prothrombin Time 11.3 sec (9.3-11.8)
[~2025-01-15] VITALS: Ht 172.7 cm; Wt 74.4 kg
[~2025-01-15 06:55] MED LIST changes: -ASCO500T11 PO; +CLOP75TA28 PO; -DIGECAP3 OR; -DIGO0.12 PO; +ESOM40CA39 PO; +EZET-10 PO; -LACTCAP35 PO; -MULTCAP45 PO; -OMEGCAP2 PO; +PRAV20TA3 PO; -RIVA10TA PO; +TAMS-35 PO; -TRAM-626 PO; -TURM1TAB PO; -UBIQ100C3 PO; -VITA-89 PO; -ZINC50TA7 PO; -[UNRECOGNIZED DRUG - CODE] PO
[2025-01-15] MEDS: LIDOCAINE 2%HCL (LOCAL ANESTH.) INJ 20ML MDV ONE ×2 (07:29→08:20)
[2025-01-15] MEDS: IOHEXOL 350 MG/ML 100ML IJ ONE (07:29)
[2025-01-15] MEDS: ANGIOMAX 250 MG VIAL IV ONE (08:19)
[2025-01-15] MEDS: fentaNYL CITRATE 100 MCG/2 ML VL ONE (08:20)
[2025-01-15] MEDS: MIDAZOLAM HCL 2MG/2ML 2ml VIAL (1mg/ml) ONE (08:20)
[2025-01-15] MEDS: SODIUM CHL 0.9% 0 ML ONE (08:20)
--- NOTE | 2025-01-15 10:01 | DVHDS ---
DATE OF DISCHARGE: 01/15/2025 The patient is status post coronary angiography. The patient shows kake vessels were patent. Mild narrowing of the LAD was discovered. FFR was performed. It was 0.89, therefore no intervention was required. The patient had no pulses in the lower extremity, especially in the right lower extremity after coronary angiography. Abdominal aortoiliac femoral angiography was performed. There were no complications. The patient tolerated the procedure well. RESULTS: The patient had high-grade narrowing. In fact, complete occlusion of the proximal iliac. With reconstitution at the level of the common femoral. Left peripheral angiography revealed no flow-restrictive lesion. Left anterior descending artery was patent with negative FFR. Circumflex was patent. RCA was patent with mild intimal irregularity in the PDA territory. EF was preserved with an estimated EF around 75% at this time. Continue all current medications. Followup with me in 1 week. Stable at the time of discharge. DISPOSITION: Home. Raimundo Griffith MD SA/CHRISTINA/ZO TID: [id number] RECEIPT: [id number]
--- NOTE | 2025-01-16 06:45 | DVHHP ---
ADMIT DATE: 01/15/2025 HISTORY OF PRESENT ILLNESS: The patient who is 84 years old with history of organic heart disease: * Coronary artery disease. * History of myocardial infarction involving the inferior wall. * Inferior wall reversible change consistent with small vessel disease but there is no epicardial disease as expected. The patient now has increasing symptoms of shortness of breath. His underlying rhythm appears to be atrial fibrillation. The patient is V paced. He has a dual-chamber permanent pacemaker implanted because of sick sinus syndrome. FAMILY HISTORY: Negative. SOCIAL HISTORY: Negative. PHYSICAL EXAMINATION: He has had also pancreatitis in the past. No history of any abdominal pain. No history of ____ pain. There is no pain in the bilateral lower ____ abdomen with percussion. Neurologically, the patient is intact. Distal pulses especially in the right arm is Doppler only. Left arm is palpable. IMPRESSION: Thus, the patient with coronary artery disease, now having increasing symptoms of shortness of breath, abnormal stress Cardiolite. The patient is now to undergo coronary angiography to define coronary anatomy. The patient had a previous myocardial infarction of the right coronary artery some 10 years ago. He underwent angioplasty with stent placement. We will also evaluate the status of the stent. We will continue to follow the patient. Raimundo Griffith MD SA/DARIA/MIHIR TID: [id number] RECEIPT: [id number]
--- NOTE | 2025-01-20 07:22 | DVHOP ---
DATE OF SURGERY: 01/15/2025 PROCEDURES PERFORMED: * Selective left and right coronary angiography. * Ventriculogram. * Aortogram. * An aortoiliac femoral runoff was performed. INDICATIONS: The reason for the work is because the patient had no palpable pulse in the right groin. DESCRIPTION OF PROCEDURE: The patient was prepped and draped under sterile condition. 1% Xylocaine was used to anesthetize the right groin. However, there were no palpable pulse. So, we accessed the left groin instead. A 6-[place] sheath was introduced into the left femoral artery via the Seldinger technique. Then, using a 6-[place] JL4 diagnostic catheter, left coronary angiography was performed. Then, using a 6-[place] JL4 diagnostic catheter, angiography of the right coronary artery was patent. Then, a 6-[place] multipurpose guide catheter was used to do the ventriculogram. The 6-[place] pigtail was then drawn into the descending aorta and angiography of the distal aorta, bilateral iliac and bilateral femoral arteries were performed. RESULTS: * Left main patent. * Left anterior descending artery, mild diffuse disease. FFR of the proximal segment was 0.89. Therefore, there was no significant narrowing. * Circumflex artery mild diffuse disease without any flow restrictive lesion. * Right coronary artery. Previous history of stent placement. Has mild diffuse disease. No discrete lesion. No flow restrictive lesion. * Left ventricular function was preserved with an estimated EF around 50% to 65% with an LVEDP of 9 to 12 mmHg. CONCLUSION: We will continue to follow the patient. Raimundo Griffith MD SA/FATOUMATA/KRISTIAN TID: [id number] RECEIPT: [id number]
== END 2025-01-15 11:26 | disposition home or self-care (01) ==
LOC: CATH 06:55
PROVIDERS: ATTEND Internal Medicine Cardiovascular Disease
DX: R94.39 Abnormal result of other cardiovascular function study (principal); I25.10 Atherosclerotic heart disease of native coronary artery without angina pectoris; R06.02 Shortness of breath; I25.2 Old myocardial infarction; I48.91 Unspecified atrial fibrillation; I49.5 Sick sinus syndrome; F41.9 Anxiety disorder, unspecified; Z79.899 Other long term (current) drug therapy; Z95.5 Presence of coronary angioplasty implant and graft; Z95.0 Presence of cardiac pacemaker; Z87.891 Personal history of nicotine dependence; Z81.8 Family history of other mental and behavioral disorders; Z80.8 Family history of malignant neoplasm of other organs or systems
CPT/HCPCS: 36415; 85610; 85730; 93458; 93571; C1760; C1894; J1644; J2250; J3010; J7030; Q9967; 99152; C1887